=== PATIENT | male | born 1965 | race Two or more races ===

== ENCOUNTER 2017-12-14 07:38 | Inpatient (IN) | payer BC ==
[2017-12-14 08:22] LABS: Absolute Lymphocytes (CBC) 0.6 K/uL (0.7-4.9); Absolute Monocytes 0.8 K/uL (0.1-1.3); Absolute Neutrophil 6.6 K/uL (1.8-8.0); Basophils % 0.4 % (0-1.3); Eosinophils % 0.7 % (0-4.4); Hematocrit 25.5 % (39.6-49.0); Lymphocytes % 7.1 % (15.3-44.8); MCH 28.9 pg (27.0-35.0); MCV 87.4 fL (80-100); MPV 9.4 fL (7.6-11.3); Monocytes % 9.5 % (3.3-12.3); RBC Red Blood Cell Count 2.92 M/uL (4.33-5.43)
[2017-12-14 08:24] LABS: Protime INR 1.48
[2017-12-14 08:43] LABS: Albumin 3.5 g/dL (3.4-5.0); Bilirubin Direct 0.2 mg/dL (0-0.2); Bilirubin Total 0.6 mg/dL (0.2-1.0); Protein, Total 6.9 g/dL (6.4-8.2)
--- NOTE | 2017-12-14 09:00 | ER ---
Nurse's Notes [facility] Name: Francois Miranda Age: 52 yrs Sex: Male : 1965 Arrival Date: 12/14/2017 Time: 07:40 Bed 8 Private MD: Diagnosis: Acute Right-sided Pneumonia;Acute Dyspnea;CHF;renal insufficiency;anemia Presentation: 12/14 07:48 Presenting complaint: Patient states: SOB, productive cough, nausea, fever x 3 days. hb Denies pain. TMAX 100. Hx kidney transplant, anemia. Transition of care: patient was not received from another setting of care. Onset of symptoms was December 11, 2017. Risk Assessment: Do you want to hurt yourself or someone else? Patient reports no desire to harm self or others. 07:48 Method Of Arrival: Ambulatory hb 07:48 Acuity: PRISCILLA 2 hb 08:07 Initial Sepsis Screen: Does the patient meet any 2 criteria? RR > 20 per min. Yes Does sv the patient have a suspected source of infection? Yes: Productive cough/pneumonia. Care prior to arrival: None. Triage Assessment: 08:04 Respiratory: Onset: The symptoms/episode began/occurred 3 days ago. sv 08:45 Respiratory: the patient has severe shortness of breath. sv Historical: - Allergies: 07:51 No Known Allergies; hb - PMHx: 07:51 Anemia; hb - PSHx: 07:51 Kidney Transplant - RIGHT; HD fistule - LEFT; hb - Immunization history:: Adult Immunizations. - Social history:: Smoking status: Patient/guardian denies using tobacco. - Ebola Screening: : No symptoms or risks identified at this time. - Family history:: not pertinent. - Hospitalizations: : No recent hospitalization is reported. Screenin:57 Abuse screen: Denies threats or abuse. Denies injuries from another. Nutritional sv screening: No deficits noted. Tuberculosis screening: No symptoms or risk factors identified. Fall Risk None identified. Assessment: 08:45 General: Appears uncomfortable, obese, Behavior is calm, cooperative, appropriate for sv age. Pain: Denies pain. Neuro: Level of Consciousness is awake, alert, obeys commands, Oriented to person, place, time, situation, Moves all extremities. Full function. Cardiovascular: Heart tones S1 S2 present Patient's skin is warm and dry. Pulses are 3+ in right radial artery and left radial artery Rhythm is atrial fibrillation. Cardiovascular: Edema is 3+ to left ankle, left foot, left toes, right ankle, right foot and right toes Dialysis shunt: in the left arm, with palpable thrill. Respiratory: Reports shortness of breath at rest on exertion since 3 days cough that is productive, Airway is patent Respiratory effort is even, labored, Respiratory pattern is symmetrical, tachypnea Breath sounds are clear in left posterior upper lobe and right posterior upper lobe Breath sounds with crackles in left posterior lower lobe, right posterior middle lobe and right posterior lower lobe. GI: No signs and/or symptoms were reported involving the gastrointestinal system. : No signs and/or symptoms were reported regarding the genitourinary system. EENT: No signs and/or symptoms were reported regarding the EENT system. Derm: Skin is pink, warm \T\ dry. Musculoskeletal: No signs and/or symptoms reported regarding the musculoskeletal system. 09:34 Reassessment: Pt stated that he needed to have a BM and wanted to go to the restroom. sv Informed pt that I would not have a way to monitor him if something were to happen. Pt understood and is ok taking that risk. Pt wheeled to the bathroom with oxygen, at pt's side as well. 09:42 Reassessment: Patient appears in no apparent distress at this time. Patient and/or sv family updated on plan of care and expected duration. Pain level reassessed. Patient is alert, oriented x 3, equal unlabored respirations, skin warm/dry/pink. Patient states symptoms have improved. 12:20 Reassessment: Patient appears in no apparent distress at this time. Patient and/or sv family updated on plan of care and expected duration. Pain level reassessed. 12:28 Reassessment: Nurse to call back for report. sv 12:28 Reassessment: Dr Segal at bedside. sv Vital Signs: 07:45 BP 173 / 87; Pulse 83; Resp 40; Temp 99.1(O); Pulse Ox 85% on R/A; Pain 0/10; hb 07:46 Resp 38; Pulse Ox 88% on 2 lpm NC; sv 08:05 BP 169 / 69; Pulse 80; Resp 28; Pulse Ox 96% on 50% Venturi mask; sv 08:52 BP 173 / 88; Pulse 77; Resp 23; Pulse Ox 100% on 50% Venturi mask; sv 09:32 BP 166 / 91; Pulse 79; Resp 19; Pulse Ox 98% on 50% Venturi mask; sv 10:34 BP 170 / 91; Pulse 78; Resp 25; Pulse Ox 100% on 50% Venturi mask; sv 12:07 BP 162 / 98; Pulse 72; Resp 24; Pulse Ox 100% on 50% Venturi mask; sv 07:46 Pt then placed on Venturi mask at 50%. O2 sat up to 98%. sv ED Course: 07:40 Patient arrived in ED. sb2 07:44 Amanda Denis, JOSE ALFREDO is Primary Nurse. sv 07:45 Francois Verdugo MD is Attending Physician. wa 07:45 radiation monitor on. Pulse ox on. NIBP on. sv 07:49 Triage completed. hb 07:51 Arm band placed on left wrist. hb 07:55 Initial lab(s) drawn, by me, sent to lab. First set of blood cultures drawn by me. dh3 Inserted saline lock: 20 gauge in right antecubital area, using aseptic technique. Blood collected. 07:57 Patient has correct armband on for positive identification. Placed in gown. Bed in low sv position. Call light in reach. Side rails up X2. Adult w/ patient. 08:13 Second set of blood cultures drawn by me, by venipuncture 23G to right hand. dh3 08:28 X-ray completed. Portable x-ray completed in exam room. Patient tolerated procedure mh1 well. 08:30 Chest Single View XRAY In Process Unspecified. EDMS 08:58 Beba Reis MD is Hospitalizing Provider. wa 12:10 Urine Dipstick--Ancillary (enter results) Sent. sv 12:27 No provider procedures requiring assistance completed. Patient admitted, IV remains in sv place. intact. Administered Medications: 09:50 Drug: Nitroglycerin 0.4 mg Route: Sublingual; sv 10:00 Follow up: Response: No adverse reaction sv 09:51 Drug: Tylenol 1000 mg Route: PO; sv 10:00 Follow up: Response: No adverse reaction sv 09:52 Drug: Cefepime 2 grams Route: IVPB; Rate: 200 ml/hr; Infused Over: 30 mins; Site: right sv antecubital; 09:58 Follow up: Response: No adverse reaction; IV Status: Completed infusion; IV Intake: 20mlsv 09:58 Drug: vancoMYCIN 1 grams Route: IVPB; Infused Over: 2 hrs; Site: right antecubital; sv 12:00 Follow up: Response: No adverse reaction; IV Status: Completed infusion; IV Intake: sv 250ml 12:54 Drug: Lasix 80 mg Route: IVP; Site: right antecubital; hb 12:55 Follow up: Response: No adverse reaction sv Point of Care Testing: Blood Glucose: 07:57 Blood Glucose: 263 mg/dL; sv Ranges: Intake: 09:58 IV: 20ml; Total: 20ml. sv 12:00 IV: 250ml; Total: 270ml. sv Outcome: 08:59 Decision to Hospitalize by Provider. mo 12:55 Admitted to Tele accompanied by tech, family with patient, via stretcher, room 225, sv with oxygen, with chart, Report called to Antonio VELIZ 12:55 Condition: stable 12:55 Instructed on the need for admit. 13:35 Patient left the ED. sv Signatures: Dispatcher [employer] Amanda Chung RN RN Ketty Herrera 1 Alexandra Mauro RN RN Yeimi Mitchell 3 Francois Verdugo MD MD wa Billeau, Sheri sb2 Corrections: (The following items were deleted from the chart) 08:04 07:45 BP 173 / 87; Pulse 83bpm; Resp 28bpm; Pulse Ox 85% RA; Temp 99.1F Oral; Pain hb 0/10; hb 08:05 07:46 Pulse Ox 88% 2 lpm Nasal Cannula; Pt then placed on Venturi mask at 50%. O2 sat sv up to 98%.; sv 08:08 08:07 Initial Sepsis Screen: Does the patient meet any 2 criteria? RR > 20 per min. Yes sv Does the patient have a suspected source of infection? No. Patient's initial sepsis screen is negative. sv 09:38 08:05 BP 169 / 69; Pulse 80bpm; Resp 28bpm; Pulse Ox 96% 02 15% Venturi mask; sv sv 09:38 08:52 BP 173 / 88; Pulse 77bpm; Resp 23bpm; Pulse Ox 100% 02 15% Venturi mask; sv sv 09:38 09:32 BP 166 / 91; Pulse 79bpm; Resp 19bpm; Pulse Ox 99% 02 15% Venturi mask; dh3 sv
--- NOTE | 2017-12-14 09:00 | EDPHYS ---
Physician Documentation [facility] Name: Francois Miranda Age: 52 yrs Sex: Male : 1965 Arrival Date: 12/14/2017 Time: 07:40 Bed 8 Private MD: ED Physician Francois Verdugo HPI: 12/14 08:10 This 52 yrs old Male presents to ER via Ambulatory with complaints of Breathing wa Difficulty, Congestion. 08:10 The patient has shortness of breath at rest, c/o cough and SOB x 3 days. denies chest wa tightness or pain. admits to subjective fever and chills. h/o same in the past dx'd with pna. h/o kidney transplant x 14 yrs on tacrolimus. Denies abd pain. admits to worsening leg swelling. [facility] docs [facility]. also sees Dr. Kingston (cardiology) in this hosp. Onset: The symptoms/episode began/occurred 3 day(s) ago. Duration: The symptoms are continuous, and are steadily getting worse. The patient's shortness of breath is aggravated by nothing, is alleviated by nothing. Associated signs and symptoms: Pertinent positives: productive cough, fever, Pertinent negatives: chest pain, dizziness, vomiting. Severity of symptoms: At their worst the symptoms were moderate today, in the emergency department the symptoms are worse markedly. The patient has experienced a previous episode, many years ago, dx'd with pna. The patient has not recently seen a physician. Historical: - Allergies: 07:51 No Known Allergies; hb - PMHx: 07:51 Anemia; hb - PSHx: 07:51 Kidney Transplant - RIGHT; HD fistule - LEFT; hb - Immunization history:: Adult Immunizations. - Social history:: Smoking status: Patient/guardian denies using tobacco. - Ebola Screening: : No symptoms or risks identified at this time. - Family history:: not pertinent. - Hospitalizations: : No recent hospitalization is reported. ROS: 08:15 Eyes: Negative for injury, pain, redness, and discharge, ENT: Negative for injury, wa pain, and discharge, Neck: Negative for injury, pain, and swelling, Abdomen/GI: Negative for abdominal pain, nausea, vomiting, diarrhea, and constipation, Back: Negative for injury and pain, : Negative for injury, bleeding, discharge, and swelling, Skin: Negative for injury, rash, and discoloration, Neuro: Negative for headache, weakness, numbness, tingling, and seizure, Psych: Negative for depression, anxiety, suicide ideation, homicidal ideation, and hallucinations. 08:15 Constitutional: Positive for chills, fever, Negative for poor PO intake, weight loss. 08:15 Cardiovascular: Positive for edema, Negative for chest pain, palpitations. 08:15 MS/extremity: Positive for swelling, of the right leg and left leg, Negative for ecchymosis, erythema. 08:15 All other systems are negative. Exam: 08:17 Head/Face: Normocephalic, atraumatic. Eyes: Pupils equal round and reactive to light, wa extra-ocular motions intact. Lids and lashes normal. Conjunctiva and sclera are non-icteric and not injected. Cornea within normal limits. Periorbital areas with no swelling, redness, or edema. ENT: Nares patent. No nasal discharge, no septal abnormalities noted. Tympanic membranes are normal and external auditory canals are clear. Oropharynx with no redness, swelling, or masses, exudates, or evidence of obstruction, uvula midline. Mucous membranes moist. Neck: Trachea midline, no thyromegaly or masses palpated, and no cervical lymphadenopathy. Supple, full range of motion without nuchal rigidity, or vertebral point tenderness. No Meningismus. Chest/axilla: Normal chest wall appearance and motion. Nontender with no deformity. No lesions are appreciated. Abdomen/GI: Soft, non-tender, with normal bowel sounds. No distension or tympany. No guarding or rebound. No evidence of tenderness throughout. Back: No spinal tenderness. No costovertebral tenderness. Full range of motion. Skin: Warm, dry with normal turgor. Normal color with no rashes, no lesions, and no evidence of cellulitis. Neuro: Awake and alert, GCS 15, oriented to person, place, time, and situation. Cranial nerves II-XII grossly intact. Motor strength 5/5 in all extremities. Sensory grossly intact. Cerebellar exam normal. Normal gait. Psych: Awake, alert, with orientation to person, place and time. Behavior, mood, and affect are within normal limits. 08:17 Constitutional: The patient appears visibly dyspneic. not distressed however 08:17 Cardiovascular: Rate: normal, Rhythm: irregular, Heart sounds: normal, Edema: 2+ edema to level of pedal and ankle. 08:17 Respiratory: the patient does not display signs of respiratory distress, Respirations: tachypnea, elevated Breath sounds: noted bilateral lower lobe crackles. worse on the left, Respiratory rate: elevated Vital Signs: 07:45 BP 173 / 87; Pulse 83; Resp 40; Temp 99.1(O); Pulse Ox 85% on R/A; Pain 0/10; hb 07:46 Resp 38; Pulse Ox 88% on 2 lpm NC; sv 08:05 BP 169 / 69; Pulse 80; Resp 28; Pulse Ox 96% on 50% Venturi mask; sv 08:52 BP 173 / 88; Pulse 77; Resp 23; Pulse Ox 100% on 50% Venturi mask; sv 09:32 BP 166 / 91; Pulse 79; Resp 19; Pulse Ox 98% on 50% Venturi mask; sv 10:34 BP 170 / 91; Pulse 78; Resp 25; Pulse Ox 100% on 50% Venturi mask; sv 12:07 BP 162 / 98; Pulse 72; Resp 24; Pulse Ox 100% on 50% Venturi mask; sv 07:46 Pt then placed on Venturi mask at 50%. O2 sat up to 98%. sv MDM: 07:45 Patient medically screened. fl 08:21 Differential diagnosis: 52 yo M, immunocompromised secondary to kidney transplantation wa on suppressive meds. concern for pna. will r/o CHF. will aggressively work up r/o sepsis. will aggressively resuscitate. see stat orders. 08:51 Test interpretation: by ED physician or midlevel provider: EKG: HR 79. no obvious acute wa ischemic change. 08:54 Test interpretation: by ED physician or midlevel provider: CXR: noted R sided wa infiltrate consistent with pna. 08:57 Data reviewed: vital signs, nurses notes, radiologic studies. Response to treatment: fl the patient's symptoms have markedly improved after treatment. Physician consultation: Beba Reis MD. Admission orders: after a detailed discussion of the patient's condition and case, the admit orders are written by me. 09:10 Data reviewed: lab test result(s), radiologic studies. Test interpretation: by ED fl physician or midlevel provider: labs noted for hyperglycemia at 289. renal insufficiency with BUN/Cr of 85/4.3. anemia at 8.4 and 25.5. low CO2 at 16. low platelets at 120. elevated BNP 7642. 10:44 Special discussion: Based on the presenting symptoms and work-up in the emergency fl department, I discussed in detail the need to arrange with the PCP or specialist an outpatient procedure, upon further discussion with pt and spouse, pt gets all his care at [facility]. spoke with pt's renal doc Fredi. advised transfer to their system for continuity as well as renal support. will effect transfer as per request. 12/14 08:02 Order name: Urine Microscopic Only 12/14 08:02 Order name: Urine Culture fl 12/14 08:02 Order name: Basic Metabolic Panel; Complete Time: 09:08 fl 12/14 08:02 Order name: Blood Culture Adult (2) fl 12/14 08:02 Order name: CBC with Diff fl 12/14 08:02 Order name: Lactate; Complete Time: 08:35 fl 12/14 08:02 Order name: LFT's; Complete Time: 09:08 fl 12/14 08:02 Order name: Procalcitonin; Complete Time: 09:08 fl 12/14 08:02 Order name: Protime (+inr); Complete Time: 09:08 fl 12/14 08:02 Order name: Sed Rate fl 12/14 08:02 Order name: Troponin (emerg Dept Use Only); Complete Time: 09:08 fl 12/14 08:02 Order name: BNP; Complete Time: 09:08 fl 12/14 10:06 Order name: Urine Dipstick--Ancillary (enter results) bd 12/14 10:09 Order name: Urine Dipstick-Ancillary EDMS 12/14 08:02 Order name: Chest Single View XRAY; Complete Time: 09:09 fl 12/14 08:02 Order name: Accucheck; Complete Time: 08:17 fl 12/14 08:02 Order name: Cardiac monitoring; Complete Time: 08:17 fl 12/14 08:02 Order name: EKG - Nurse/Tech; Complete Time: 12:11 fl 12/14 08:02 Order name: IV Saline Lock - Large Bore; Complete Time: 08:17 fl 12/14 08:02 Order name: Labs collected and sent; Complete Time: 08:18 fl 12/14 08:02 Order name: O2 Per Protocol; Complete Time: 08:18 fl 12/14 08:02 Order name: O2 Sat Monitoring; Complete Time: 08:18 fl 12/14 08:19 Order name: EKG; Complete Time: 08:20 12/14 11:22 Order name: Glucose, Ancillary Testing [facility] 12/14 13:28 Order name: Glucose, Ancillary Testing [facility] 12/14 08:02 Order name: Urine Dipstick-Ancillary (obtain specimen); Complete Time: 12:11 fl Administered Medications: 09:50 Drug: Nitroglycerin 0.4 mg Route: Sublingual; sv 10:00 Follow up: Response: No adverse reaction sv 09:51 Drug: Tylenol 1000 mg Route: PO; sv 10:00 Follow up: Response: No adverse reaction sv 09:52 Drug: Cefepime 2 grams Route: IVPB; Rate: 200 ml/hr; Infused Over: 30 mins; Site: right sv antecubital; 09:58 Follow up: Response: No adverse reaction; IV Status: Completed infusion; IV Intake: 20mlsv 09:58 Drug: vancoMYCIN 1 grams Route: IVPB; Infused Over: 2 hrs; Site: right antecubital; sv 12:00 Follow up: Response: No adverse reaction; IV Status: Completed infusion; IV Intake: sv 250ml 12:54 Drug: Lasix 80 mg Route: IVP; Site: right antecubital; hb 12:55 Follow up: Response: No adverse reaction sv Point of Care Testing: Blood Glucose: 07:57 Blood Glucose: 263 mg/dL; sv Ranges: Critical Glucose Levels:Adult <50 mg/dl or >400 mg/dl <40 mg/dl or >180 mg/dl Disposition: :13 Critical Care:. fl Disposition: 12/14/17 08:59 Hospitalization ordered by Beba Reis for Inpatient Admission. Preliminary diagnosis are Acute Right-sided Pneumonia, Acute Dyspnea, CHF, renal insufficiency, anemia. - Bed requested for Telemetry/MedSurg (Inpatient). - Status is Inpatient Admission. sv - Condition is Stable. - Problem is new. - Symptoms have improved. UTI on Admission? No Critical care time excluding procedures: :13 Critical care time: Bedside Care: 15 minutes, Consultation: 5 minutes, Family wa Intervention: 10 minutes. Total time: 30 minutes Signatures: Dispatcher [employer] EDNC Amanda Denis RN RN Elza Martins RN RN Alexandra Mauro, JOSE ALFREDO VELIZ Francois Verdugo MD MD fl Corrections: (The following items were deleted from the chart) 09:12 08:59 Hospitalization Ordered by Beba Reis MD for Inpatient Admission. Preliminary fl diagnosis is Acute Right-sided Pneumonia; Acute Dyspnea. Bed requested for Telemetry/MedSurg (Inpatient). Status is Inpatient Admission. Condition is Stable. Problem is new. Symptoms have improved. UTI on Admission? No. fl 12:16 09:12 12/14/2017 08:59 Hospitalization Ordered by Beba Reis MD for Inpatient dw Admission. Preliminary diagnosis is Acute Right-sided Pneumonia; Acute Dyspnea; CHF; renal insufficiency; anemia. Bed requested for Telemetry/MedSurg (Inpatient). Status is Inpatient Admission. Condition is Stable. Problem is new. Symptoms have improved. UTI on Admission? No. fl 13:35 12:16 12/14/2017 08:59 Hospitalization Ordered by Beba Reis MD for Inpatient sv Admission. Preliminary diagnosis is Acute Right-sided Pneumonia; Acute Dyspnea; CHF; renal insufficiency; anemia. Bed requested for Telemetry/MedSurg (Inpatient). Status is Inpatient Admission. Condition is Stable. Problem is new. Symptoms have improved. UTI on Admission? No.
--- NOTE | 2017-12-14 09:05 | RAD REPORT ---
EXAM DESCRIPTION: RAD - Chest Single View - 12/14/2017 8:30 am CLINICAL HISTORY: Cough, shortness of breath, fever COMPARISON: May 2009 TECHNIQUE: AP portable chest image was obtained 0817 hours . FINDINGS: Portable underpenetrated technique and large body habitus limit the examination. Alveolar opacification is present in the lower right lung field. Upper lobe vasculature is accentuate d by body habitus and shallow inspiration. Left base assessment is limited. Heart size is upper benito l. No measurable pleural effusion and no pneumothorax. No gross bony abnormality seen. No acute aorti c findings suspected. IMPRESSION: Right lung base pneumonia.
[2017-12-14] MEDS ORDERED: VANCOMYCIN/NS 1 gm 1 GM/250 ML BAG IV ONE (09:15)
[2017-12-14] MEDS ORDERED: CEFEPIME/SWI 2gm 2 GM/20 ML SYR IV ONE (09:15)
[2017-12-14] MEDS ORDERED: ACETAMINOPHEN 500 MG TAB ONE (09:30)
[2017-12-14] MEDS ORDERED: NITROGLYCERIN 0.4 MG/TAB SL ONE (09:30)
--- NOTE | 2017-12-14 09:35 | EKG ---
Test Date: 2017-12-14 Test Time: 08:30:39 Sql Database Administrator: APRYL MEASUREMENT RESULTS: Intervals: Rate: 79 [place]: 190 QRSD: 100 QT: 372 QTc: 426 [place]: P: 29 AZ: 190 QRS: -17 T: 21 INTERPRETIVE STATEMENTS: Normal sinus rhythm Normal ECG Compared to ECG 06/20/2009 06:39:07 No significant changes Electronically Signed On 12-14-17 09:34:40 CDT by Aaron Kingston
[2017-12-14] MEDS ORDERED: ONDANSETRON 4 MG/2 ML VIAL IV PRN (09:57)
[2017-12-14] MEDS ORDERED: ACETAMINOPHEN 500 MG TAB PO PRN (09:57)
[2017-12-14 10:09] LABS: Urine Blood 2+ (NEG); Urine Glucose TRACE (NEG); Urine Protein 3+ (NEG)
[2017-12-14 10:18] LABS: Urine Bacteria 20-50 /HPF (NONE SEEN)
[2017-12-14 10:19] LABS: Urine Amorphous Sediment 2+ /HPF (NONE SEEN); Urine Culture Reflex Order NOT NEEDED; Urine Mucus 3+ /HPF (NONE SEEN)
[2017-12-14 10:20] LABS: Urine Coarse Granular Casts 0-5 /LPF (NONE SEEN)
[2017-12-14] MEDS: INSULIN -REGULAR HUMAN 50 UNIT/0.5 ML ML SQ SCH ×3 (11:30→22:09)
--- NOTE | 2017-12-14 12:07 | P.HP ---
Certification for Inpatient Patient admitted to: Inpatient With expected LOS: >2 Midnights Patient will require the following post-hospital care: None Practitioner: I am a practitioner with admitting privileges, knowledge of patient current condition, hospital course, and medical plan of care. Services: Services provided to patient in accordance with Admission requirements found in Title 42 Section 412.3 of the Code of Federal Regulations Patient History Date of Service: 12/17/17 Primary Care Provider: OOT Reason for admission: DOUGLAS History of Present Illness: This is a 52-year-old male with significant past medical history of hypertension , atrial fibrillation, morbid obesity, kidney transplant 14 years ago, was on hemodialysis before, presenting to the ED complaining of having some shortness of breath, cough, fever of T-max of 100 which started about 2-3 days ago. Patient stated that he got real short of breath and thus decided to come to the ER for further workup. Patient kidney transplant team is at [facility]. 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 And has been followed by Dr. Kingston for his chronic atrial fibrillation. In the ER patient was found to have right lower lobe pneumonia along with acute kidney injury and thus was referred over for admission for further care. Initially patient was asked to be transferred to [facility] where his transplant team is given the nature of his acute kidney injury and the possibility of rejection. However patient was not transferred to [facility] due to no available beds at [facility]. Allergies No Known Allergies Allergy (Verified 12/14/17 14:12) Home Medications: Allopurinol 1 tab PO BID 12/14/17 Amlodipine Besylate 10 mg PO BID 12/14/17 Amlodipine [Norvasc] 10 mg PO DAILY 12/14/17 Apixaban [Eliquis] 2.5 mg PO BID 12/14/17 Epoetin [Procrit*] 1 vial SQ DIRECTED 12/14/17 Labetalol HCl [Trandate] 400 mg PO BID 12/14/17 Mycophenolate Mofetil [Cellcept] 1,000 mg PO BID 12/14/17 Rosuvastatin Calcium 10 mg PO BEDTIME 12/14/17 Tacrolimus [Prograf] 4 mg PO BID 12/14/17 cloNIDine HCl [Clonidine HCl] 1 tab PO BID 12/14/17 predniSONE [Prednisone*] 7.5 mg PO DAILY 12/14/17 - Family History Mother -: Other (see notes) Notes: NO MEDICAL HISTORY Father -: Stroke, Other (see notes) Notes: PROSTRATE CANCER Review of Systems General: As per HPI Physical Examination - Physical Exam General: Alert, Acute distress, Obese HEENT: Atraumatic Neck: Supple, 2+ carotid pulse no bruit, No LAD, Without JVD or thyroid abnormality Respiratory: Normal air movement, Crackles/rales Cardiovascular: Regular rate/rhythm, Normal S1 S2 Gastrointestinal: Normal bowel sounds, No tenderness Musculoskeletal: No tenderness Integumentary: No rashes Neurological: Normal gait, Normal speech, Normal strength at 5/5 x4 extr, Normal tone, Normal affect Lymphatics: No axilla or inguinal lymphadenopathy - Studies Laboratory Data (last 24 hrs) 12/14/17 07:55: PT 17.5 H, INR 1.48 12/14/17 07:55: WBC 8.0, Hgb 8.4 L, Hct 25.5 L, Plt Count 120 L 12/14/17 07:55: Sodium 135 L, Potassium 5.0, BUN 85 H, Creatinine 4.30 H, Glucose 289 H, Total Bilirubin 0.6, AST 7 L, ALT 8 L, Alkaline Phosphatase 84 Assessment and Plan - Problems (Diagnosis) (1) PNA (pneumonia) Onset Date: 12/15/17 Current Visit: Yes Status: Acute Plan: Right liver lobe pneumonia noted on the chest CT and chest x-ray. CT and chest x-ray at the likely represent volume overload as well as however patient will be started on IV antibiotics at this time and will collect sputum culture. Will continue with the lab monitoring and repeat x-ray in the morning. Qualifiers: Pneumonia type: due to unspecified organism Laterality: right Lung location: lower lobe of lung Qualified Code(s): J18.1 - Lobar pneumonia, unspecified organism (2) UTI (urinary tract infection) Onset Date: 12/15/17 Current Visit: Yes Status: Acute Plan: UAs positive for leuk esterase urine culture is pending at this time. Patient will be started on IV antibiotics for pneumonia was get IV Rocephin which will cover for both the pneumonia and UTI at this time. Will follow up with urine culture. Qualifiers: Urinary tract infection type: acute cystitis Hematuria presence: without hematuria Qualified Code(s): N30.00 - Acute cystitis without hematuria (3) Volume overload Onset Date: 12/15/17 Current Visit: Yes Status: Acute Plan: Volume overload with bilateral lower leg extremity edema most likely secondary to renal insufficiency. Patient will be started on IV Lasix here in the hospital. Will get nephrology consulted here in the hospital. Will communicate with the transplant team along with nephrology at [facility] for the patient. Patient might require hemodialysis echo be started here in the hospital however will wait for further recommendations from nephrology at this time. Qualifiers: Hypervolemia type: other Qualified Code(s): E87.79 - Other fluid overload (4) DOUGLAS (acute kidney injury) Onset Date: 12/15/17 Current Visit: Yes Status: Acute Plan: Acute kidney injury most likely secondary to UTI verses acute worsening of the chronic kidney disease. Nephrology consulted at this time. Patient does have a history of hemodialysis which she had in the past however was stopped due to proven in his kidney function. Will await nephrology recommendations at this time in terms of starting hemodialysis versus cavitary attic for volume overload. Patient will also need to be on steroids due to possibility of acute rejection of the transplanted kidney. Will start that here in the hospital at this time. (5) Kidney transplant recipient Onset Date: 12/15/17 Current Visit: Yes Status: Chronic Discharge Plan: Home Plan to discharge in: 48 Hours - Advance Directives Does patient have a Living Will: No Does patient have a Durable POA for Healthcare: No - Code Status/Comfort Care Code Status Assessed: Yes Critical Care: No
[2017-12-14] MEDS ORDERED: FUROSEMIDE 100 MG/10 ML VIAL IV ONE (12:54)
[2017-12-14] MEDS ORDERED: CIPROFLOXACIN 400mg IV 400 MG/200 ML BAG IV SCH (13:00)
--- NOTE | 2017-12-14 14:26 | ECHO ---
HEIGHT: 6 ft 0 in WEIGHT: 360 lb 0 oz DATE OF STUDY: 12/14/[address]: Beba Reis MD 2-DIMENSIONAL: YES M.MODE: YES DOPPLER: YES COLOR FLOW: YES TDS: NO PORTABLE: NO DEFINITY: NO BUBBLE STUDY: NO DIAGNOSIS: SHORTNESS OF BREATH CARDIAC HISTORY: CATHERIZATION: NO SURGERY: NO PROSTHETIC VALVE: NO PACEMAKER: NO MEASUREMENTS (cm) DIASTOLIC (NORMALS) SYSTOLIC (NORMALS) IVSd 1.2 (0.6-1.2) LA Diam 5.1 (1.9-4.0) LVEF 61% LVIDd 7.2 (3.5-5.7) LVIDs 4.7 (2.0-3.5) %FS 34% LVPWd 1.3 (0.6-1.2) Ao Diam 2.7 (2.0-3.7) 2 DIMENSIONAL ASSESSMENT: RIGHT ATRIUM: DILATED LEFT ATRIUM: DILATED RIGHT VENTRICLE: NORMAL LEFT VENTRICLE: LEFT VENTRICULAR HYPERTROHY, DILATED TRICUSPID VALVE: NORMAL MITRAL VALVE: NORMAL PULMONIC VALVE: NORMAL AORTIC VALVE: NORMAL PERICARDIAL EFFUSION: NONE AORTIC ROOT: NORMAL LEFT VENTRICULAR WALL MOTION: NORMAL. DOPPLER/COLOR FLOW: MILD TRICUSPID REGURGITATION. TRACE OF TRICUSPID REGURGITATION. SEVERE PULMONARY HYPERTENSION. ESTIMATED RIGHT VENTRICULAR SYSTOLIC PRESSURE >60mmHg. COMMENTS: NORMAL LEFT VENTRICULAR EJECTION FRACTION. DILATED LEFT ATRIUM, RIGHT ATRIUM, LEFT VENTRICLE. LEFT VENTRICULAR HYPERTROPHY. MILD MITRAL REGURGITATION. TRACE OF TRICUSPID REGURGITATION. SEVERE PULMONARY HYPERTENSION. TECHNOLOGIST: BEBA SAHNI
[2017-12-14 14:34] VITALS: BMI 48.8
[2017-12-14] MEDS ORDERED: PNEUMOCOCCAL VACCINE 0.5 ML IMVAC ONE (19:00)
[2017-12-14] MEDS ORDERED: EPOETIN ALFA 20,000 UNIT/1 ML VIAL SQ SCH (21:15)
[2017-12-14 21:51] LABS: Arterial Blood Carboxyhemoglob 1.8 % (0-1.5); Blood Gas Oxyhemoglobin 95.8 % (94-97); Blood O2 Saturation 98.3 % (92-98.5)
--- NOTE | 2017-12-14 22:26 | RAD REPORT ---
EXAM DESCRIPTION: US - Renal Ultrasound-Complete - 12/14/2017 10:04 pm CLINICAL HISTORY: . Acute renal insufficiency COMPARISON: 2014 FINDINGS: A transplant kidney is present within the right pelvis. The kidney 14.6 centimeters. The e chotexture appears normal. Mild hydronephrosis is unchanged from 2014. . IMPRESSION: Mild hydronephrosis of the transplant kidney without change from 2014.
--- NOTE | 2017-12-14 23:36 | CON ---
Date of Consultation: 12/14/2017 Consulting Physician: Dr. Reis. Reason For Consultation: Elevated BUN and creatinine, fluid over volume, renal transplant. History Of Present Illness: This is a pleasant, unfortunate, 52-year-old gentleman with significant past medical history of hypertension; hyperlipidemia; end-stage renal disease, status post dialysis f or 6 years when cadaveric kidney transplant 14 years back slowly progressed, no rejection according t o him in the last 1 year. His kidney function continue to deteriorate to the point that they propose d to him that he may need to reinitiate dialysis. The patient's last creatinine according to him, it was 3.5 with his set up technician. The patient was maintained on CellCept 1 g b.i.d. and Prograf 4 mg b .i.d. The patient came to the hospital complaining of shortness of breath and increase in swelling, found to have elevated BUN and creatinine, over volume. For that reason, we have been consulted. Th e patient denied taking any nonsteroidal. No IV contrast. No recent change in his medication. Past Medical History: Includes: 1.Hypertension. 2.End-stage renal disease, status post dialysis for 6 years, then current transplant 14 years back, cadaveric kidney transplant. No acute rejection, slow progression to end stage again. 3.Hyperlipidemia. 4.Obesity. Allergies: NO KNOWN DRUG ALLERGIES. Social History: Denies smoking, denies drinking, denies drug abuse. Family History: Positive for hypertension. Past Surgical History: Include kidney transplant. Review of Systems: Head and Neck: No red eye. No ear pain. GI: Decreased intake. : No polyuria. No dysuria. No hematuria. ELECTRONIC PUBLISHING SPECIALIST: Not applicable. Respiratory: Has shortness of breath. Has cough. Cardiovascular: No chest pain. Has leg swelling. Endocrine: No polydipsia. Skin: No rash. Neuro: Generalized weakness. Musculoskeletal: No joint pain. Physical Examination: Vital Signs: When I saw the patient, blood pressure 168/86, pulse of 72, afebrile. Chest: Crackles bilateral. Heart: S1, S2. Systolic murmur. Abdomen: Soft, nontender. Extremities: +2 edema. Neurologic: Alert and oriented, no tremor. Home Medications: Include amlodipine 10 mg, CellCept 1000 mg b.i.d., labetalol 400 b.i.d., Prograf 4 mg b.i.d., allopurinol 100 b.i.d., Eliquis 2.5 b.i.d., Epogen, prednisone 7.5 daily, clonidine 1 tab let b.i.d., atorvastatin. Laboratory Data: WBC 8, H and H 8.4/25.5, platelet 120. Sodium 135, potassium 5, bicarb 16, chlorid e 108, BUN 85, creatinine 4.3, GFR of 14, glucose 285. LFT within normal limits. BNP 7642, procalci tonin 0.5. Urinalysis: Specific gravity of 1.020, WBC of 10, bacteria of 50, +3 of protein. INR 1.4 . Echocardiogram: Ejection fraction of 60%. Dilated left ventricle with hypertrophy. Severe pulmo nary hypertension. Chest x-ray: Cardiomegaly with pneumonia. Assessment And Plan: 1.Acute kidney injury on advanced chronic kidney disease with kidney transplant. a.It looked to me the patient is still on the over volume side. I going to give the patient Lasix 8 [address] the patient on Lasix 80 b.i.d. to establish better volume control. b.We will send for full workup. c.Given the history of the transplant and the patient is steroid dependent, I am going to up his pre dnisone to stress dose, 50 mg of hydrocortisone t.i.d. d.I am going to hold on the CellCept and decrease the Prograf for the time being given the active pn eumonia. e.We will continue to monitor the patient. f.I had long discussion with the patient that if kidney function continues to deteriorate, may need to initiate dialysis to establish better volume control. The patient verbalized understanding and ag olesya if that is needed to do it. 2.Hyperkalemia, marginal. We will hold ANTONIO inhibitor secondary to renal failure. We will diurese. 3.Acidosis. Non-anion gap metabolic acidosis. I am going to send for ABG, send for ketone. I do n ot see any need for replacement. Given the hyperglycemia, DKA needs to be ruled out. We will follow up. 4.Anemia of chronic kidney disease, we will send for the workup. Resume Epogen. 5.Pneumonia in immunocompromised patient. We will start the patient on vancomycin and Zosyenrico and we will monitor the patient. 6.New-onset diabetes. We will place the patient on sliding scale and we will follow up. Case discussed with the patient, verbalized understanding. Discussed with neli Mac. Time Spent: 75 minutes. MISSY Voice ID: [id number] Report ID: [id number]
[2017-12-15] MEDS ORDERED: PIPERACIL/TAZO 2.25 GM VIAL IV ONE (00:34)
[2017-12-15] MEDS ORDERED: NA CHLORIDE 0.9% 100 ML ONE (00:36)
[2017-12-15] MEDS: PIPER/TAZO/NS 2.25gm 2.25 GM/50 ML BAG IVPB SCH ×3 (00:43→18:08)
[2017-12-15 05:16] LABS: Absolute Lymphocytes (CBC) 0.3 K/uL (0.7-4.9); Absolute Monocytes 0.3 K/uL (0.1-1.3); Absolute Neutrophil 5.2 K/uL (1.8-8.0); Basophils % 0.2 % (0-1.3); Eosinophils % 0.2 % (0-4.4); Hematocrit 21.9 % (39.6-49.0); Lymphocytes % 5.8 % (15.3-44.8); MCH 29.3 pg (27.0-35.0); MCV 86.5 fL (80-100); Monocytes % 5.7 % (3.3-12.3); RBC Red Blood Cell Count 2.53 M/uL (4.33-5.43)
[2017-12-15 05:51] LABS: Urine Protein/Creatinine Ratio 2.78 ratio (<0.15)
[2017-12-15 06:03] LABS: Bilirubin Total 0.5 mg/dL (0.2-1.0); Ferritin 608.4 ng/mL (26-388); Folic Acid, (Folate) 7.9 ng/mL (3.1-17.5); Magnesium 2.2 mg/dL (1.8-2.4); Phosphorus 4.4 mg/dL (2.5-4.9); Protein, Total 6.6 g/dL (6.4-8.2); Thyroid Stimulating Hormone 1.24 uIU/mL (0.36-3.74)
[2017-12-15 06:04] LABS: Potassium 5.9 mmol/L (3.5-5.1)
[2017-12-15] MEDS ORDERED: SOD POLYSTYREN SUL 15 GM/60 ML UCUP PO ONE (08:43)
[2017-12-15 08:46] LABS: Anisocytosis SLIGHT; Blood Morphology Comment NOTED (NOT SEEN); Macrocytosis SLIGHT; Ovalocytes SLIGHT; Platelet Estimate DECR
[2017-12-15] MEDS ORDERED: prednisoLONE 15 MG/5 ML OSYR PO SCH (09:00)
[2017-12-15] MEDS ORDERED: TACROLIMUS 4 MG PO SCH (09:00)
[2017-12-15] MEDS: LABETALOL HCL 100 MG TAB PO SCH ×2 (09:00→22:32)
[2017-12-15] MEDS: AMLODIPINE 10 MG TAB PO SCH (09:00)
[2017-12-15] MEDS ORDERED: MYCOPHENOLATE MOFETIL 1000 MG PO SCH (09:00)
[2017-12-15] MEDS: predniSONE 10 MG TAB PO SCH (09:00)
[2017-12-15] MEDS ORDERED: APIXABAN 5 MG TABLET PO SCH (09:00)
[2017-12-15] MEDS ORDERED: ALBUTEROL 2.5 MG/3 ML NEB SOL NEB ONE (10:10)
[2017-12-15] MEDS: INSULIN -REGULAR HUMAN 50 UNIT/0.5 ML ML SQ SCH ×4 (10:19→22:30)
[2017-12-15] MEDS: FUROSEMIDE 40 MG/4 ML VIAL IV SCH ×2 (10:26→18:09)
[2017-12-15] MEDS: SODIUM BICARB 325 MG TAB PO SCH ×2 (10:28→22:31)
--- NOTE | 2017-12-15 11:07 | P.PN ---
Addendum entered and electronically signed by Miguel Mendes PA 12/15/17 11:08 : It was also noted that patient's hemoglobin had dropped since yesterday. Patient currently on Procrit but a stool guaiac will be obtained to ensure that he is not bleeding internally since patient is on Eliquis. Original Note: Subjective Date of Service: 12/15/17 Chief Complaint: shortness of breath Labs in case was reviewed this morning. Upon assessment this morning patient in no acute distress. Patient still feels short of breath at rest and with exertion. No other new developments from his standpoint. The patient's potassium was noted to be at 5.9 this morning. The BUN and creatinine both elevated but not substantially different from the day before. Tubing Drier has been consulted and has seen the patient. Patient is aware that if renal function continues to worsen that patient will have to be put back on dialysis. <Miguel Mendes - Last Filed: 12/15/17 11:00> Date of Service: 12/15/17 <Pat Delgado - Last Filed: 12/15/17 14:49> Review of Systems 10-point ROS is otherwise unremarkable Respiratory: Shortness of Breath, SOB with Excertion <Miguel Mendes - Last Filed: 12/15/17 11:00> Physical Examination - Vital Signs Temperature: 99.1 F Blood Pressure: 167/77 Pulse: 77 Respirations: 20 Pulse Ox (%): 93 - Physical Exam General: Alert, In no apparent distress, Oriented x3, Cooperative HEENT: PERRLA, Mucous membr. moist/pink, EOMI Neck: Supple, 2+ carotid pulse no bruit Respiratory: Clear to auscultation bilaterally, Normal air movement Cardiovascular: No edema, Regular rate/rhythm, Normal S1 S2 Capillary refill: <2 Seconds Gastrointestinal: Normal bowel sounds, Soft and benign, No tenderness Musculoskeletal: No clubbing, No swelling, No contractures, No erythema, No tenderness, No warmth Integumentary: No rashes, No breakdown, No significant lesion Neurological: Normal speech, Normal strength at 5/5 x4 extr, Normal tone, Sensation intact, Cranial nerves 3-12 intact, Normal affect - Studies Microbiology Data (last 24 hrs): 12/14/17 08:13 Blood - Blood Anaerobic Blood Culture - Final <Miguel Mendes - Last Filed: 12/15/17 11:00> - Studies Laboratory Last Values WBC 5.9 K/uL (4.3-10.9) D 12/15/17 04:52 RBC 2.53 M/uL (4.33-5.43) L 12/15/17 04:52 Hgb 7.4 g/dL (13.6-17.9) L* 12/15/17 04:52 Hct 21.9 % (39.6-49.0) L 12/15/17 04:52 MCV 86.5 fL (80-100) 12/15/17 04:52 MCH 29.3 pg (27.0-35.0) 12/15/17 04:52 MCHC 33.9 g/dL (32.0-36.0) 12/15/17 04:52 RDW 13.8 % (12.1-15.2) 12/15/17 04:52 Plt Count 96 K/uL (152-406) L 12/15/17 04:52 MPV 9.0 fL (7.6-11.3) 12/15/17 04:52 Neutrophils % 88.1 % (41.7-73.7) H 12/15/17 04:52 Lymphocytes % 5.8 % (15.3-44.8) L 12/15/17 04:52 Monocytes % 5.7 % (3.3-12.3) 12/15/17 04:52 Eosinophils % 0.2 % (0-4.4) 12/15/17 04:52 Basophils % 0.2 % (0-1.3) 12/15/17 04:52 Absolute Neutrophils 5.2 K/uL (1.8-8.0) 12/15/17 04:52 Segmented Neutrophils 90 % (40-80) H 12/15/17 04:52 Absolute Lymphocytes 0.3 K/uL (0.7-4.9) L 12/15/17 04:52 Lymphocytes 3 % (15-42) L 12/15/17 04:52 Monocytes 7 % (0-10) 12/15/17 04:52 Absolute Monocytes 0.3 K/uL (0.1-1.3) 12/15/17 04:52 Absolute Eosinophils 0.0 K/uL (0-0.5) 12/15/17 04:52 Absolute Basophils 0.0 K/uL (0-0.5) 12/15/17 04:52 Anisocytosis Slight 12/15/17 04:52 Macrocytosis Slight 12/15/17 04:52 Ovalocytes Slight 12/15/17 04:52 Morphology Comment Noted (NOT SEEN) 12/15/17 04:52 ESR Westergren > 140 mm/HR (0-20) H 12/14/17 07:55 Absolute Retic 0.08 M/uL (0.02-0.11) 12/15/17 04:52 Percent Retic 3.13 % (0.4-2.05) H 12/15/17 04:52 PT 17.5 SECONDS (9.5-12.5) H 12/14/17 07:55 INR 1.48 12/14/17 07:55 pH 7.30 (7.35-7.45) L 12/14/17 21:45 pCO2 30.8 mmHG (35-45) L 12/14/17 21:45 pO2 104.0 mmHG (75-100) H 12/14/17 21:45 HCO3 14.8 mmol/L (22-28) L 12/14/17 21:45 Base Excess -10.3 mmol/L 12/14/17 21:45 Oxyhemoglobin 95.8 % (94-97) 12/14/17 21:45 ABG O2 Sat (Measured) 98.3 % (92-98.5) 12/14/17 21:45 ABG Carboxyhemoglobin 1.8 % (0-1.5) H 12/14/17 21:45 ABG Methemoglobin 0.7 % (0-1.5) 12/14/17 21:45 Other Total Hgb 7.8 g/dl (12-18) L 12/14/17 21:45 Inspired O2 50.0 % 12/14/17 21:45 Sodium 136 mmol/L (136-145) 12/15/17 04:52 Potassium 5.9 mmol/L (3.5-5.1) H* 12/15/17 04:52 Chloride 110 mmol/L (98-107) H 12/15/17 04:52 Carbon Dioxide 17 mmol/L (21-32) L 12/15/17 04:52 BUN 91 mg/dL (7-18) H 12/15/17 04:52 Creatinine 4.50 mg/dL (0.55-1.3) H 12/15/17 04:52 Estimated GFR 14 mL/min (=/>90) L 12/15/17 04:52 Glucose 282 mg/dL (74-106) H 12/15/17 04:52 POC Glucose 297 mg/dl (65-120) H 12/15/17 11:54 Lactic Acid 1.8 mmol/L (0.4-2.0) 12/14/17 07:55 Calcium 9.8 mg/dL (8.5-10.1) 12/15/17 04:52 Phosphorus 4.4 mg/dL (2.5-4.9) 12/15/17 04:52 Magnesium 2.2 mg/dL (1.8-2.4) 12/15/17 04:52 Iron 21.0 ug/dL (65-175) L 12/15/17 04:52 TIBC 207 ug/dL (250-460) L 12/15/17 04:52 Transferrin 148 mg/dL (200-360) L 12/15/17 04:52 Transferrin % Sat 10.1 % (20.0-50.0) L 12/15/17 04:52 Ferritin 608.4 ng/mL (26-388) H 12/15/17 04:52 Total Bilirubin 0.5 mg/dL (0.2-1.0) 12/15/17 04:52 Direct Bilirubin 0.2 mg/dL (0-0.2) 12/14/17 07:55 AST 12 U/L (15-37) L 12/15/17 04:52 ALT 9 U/L (12-78) L 12/15/17 04:52 Alkaline Phosphatase 80 U/L (45-117) 12/15/17 04:52 Rapid Troponin I 0.03 ng/mL (0.0-0.045) 12/14/17 07:55 NT-Pro-B Natriuret Pep 7642 pg/mL (<125) H 12/14/17 07:55 Serum Total Protein 6.6 g/dL (6.4-8.2) 12/15/17 04:52 Albumin 3.0 g/dL (3.4-5.0) L 12/15/17 04:52 Globulin 3.6 g/dL (2.3-3.5) H 12/15/17 04:52 Albumin/Globulin Ratio 0.8 (1.1-1.8) L 12/15/17 04:52 Vitamin B12 439 pg/mL (193-986) 12/15/17 04:52 Serum Folate 7.9 ng/mL (3.1-17.5) 12/15/17 04:52 Procalcitonin 0.50 ng/mL (<0.50) 12/14/17 07:55 TSH 1.240 uIU/mL (0.36-3.74) 12/15/17 04:52 PTH Intact 487 pg/mL (12-88) H 12/15/17 04:52 Urine pH 5.0 (5.0-7.0) 12/14/17 10:06 Ur Specific Marshallberg 1.020 (1.005-1.030) 12/14/17 10:06 Urine Ketones Negative (NEG) 12/14/17 10:06 Urine Blood 2+ (NEG) H 12/14/17 10:06 Urine Nitrite Negative (NEG) 12/14/17 10:06 Ur Leukocyte Esterase Negative (NEG) 12/14/17 10:06 Urine RBC 5-10 /HPF (NONE SEEN) H 12/14/17 09:55 Urine WBC 5-10 /HPF (<5) H 12/14/17 09:55 Ur Squamous Epith Cells 5-10 /HPF (NONE SEEN) H 12/14/17 09:55 Amorphous Sediment 2+ /HPF (NONE SEEN) H 12/14/17 09:55 Urine Bacteria 20-50 /HPF (NONE SEEN) H 12/14/17 09:55 Hyaline Casts 0-5 /LPF (NONE SEEN) 12/14/17 09:55 Coarse Granular Casts 0-5 /LPF (NONE SEEN) 12/14/17 09:55 Urine Mucus 3+ /HPF (NONE SEEN) H 12/14/17 09:55 Urine Culture Reflexed Not needed 12/14/17 09:55 U Random Total Protein 236 mg/dL (<11.9) H 12/15/17 05:31 Urine Creatinine 85.0 mg/dL (20-370) 12/15/17 05:31 Protein/Creatinin Ratio 2.78 ratio (<0.15) H 12/15/17 05:31 Urine Glucose Trace (NEG) 12/14/17 10:06 Urine Total Protein 3+ (NEG) H 12/14/17 10:06 Acetone Level Neg (NEG) 12/14/17 22:05 ABO/Rh Cancelled 12/15/17 Unknown Antibody Screen Cancelled 12/15/17 Unknown Crossmatch See Detail 12/15/17 06:40 BBK History Checked Cancelled 12/15/17 Unknown Microbiology Data (last 24 hrs): 12/14/17 08:13 Blood - Blood Anaerobic Blood Culture - Final <Pat Delgado - Last Filed: 12/15/17 14:49> Assessment And Plan - Current Problems (Diagnosis) (1) DOUGLAS (acute kidney injury) Onset Date: 12/15/17 Current Visit: Yes Status: Acute (2) PNA (pneumonia) Onset Date: 12/15/17 Current Visit: Yes Status: Acute Qualifiers: Pneumonia type: due to unspecified organism Laterality: right Lung location: lower lobe of lung Qualified Code(s): J18.1 - Lobar pneumonia, unspecified organism (3) Kidney transplant recipient Onset Date: 12/15/17 Current Visit: Yes Status: Chronic - Plan Antibiotics will be continued for pneumonia. Patient is to have oxygen via nasal cannula at all times. Respiratory status will be continually monitored. For the elevated potassium, medications have been ordered and administered. The patient is to have a basal metabolic panel redrawn and 4 hr post medication administration to ensure that potassium is coming down. Renal function will be monitored and labs will be drawn in the morning to ensure stabilization renal function if not nephrology will be called. Discharge Plan: Home Plan to discharge in: 72 Hours <Miguel Mendes - Last Filed: 12/15/17 11:00> - Current Problems (Diagnosis) (1) DOUGLAS (acute kidney injury) Onset Date: 12/15/17 Current Visit: Yes Status: Acute (2) PNA (pneumonia) Onset Date: 12/15/17 Current Visit: Yes Status: Acute Qualifiers: Pneumonia type: due to unspecified organism Laterality: right Lung location: lower lobe of lung Qualified Code(s): J18.1 - Lobar pneumonia, unspecified organism (3) UTI (urinary tract infection) Onset Date: 12/15/17 Current Visit: Yes Status: Acute Qualifiers: Urinary tract infection type: acute cystitis Hematuria presence: without hematuria Qualified Code(s): N30.00 - Acute cystitis without hematuria (4) Volume overload Onset Date: 12/15/17 Current Visit: Yes Status: Acute (5) Kidney transplant recipient Onset Date: 12/15/17 Current Visit: Yes Status: Chronic - Plan Case discussed with PA. Agree with above plan <Pat Delgado - Last Filed: 12/15/17 14:49>
[2017-12-15] MEDS ORDERED: NA CHLORIDE 0.9% 50 ML ONE (12:36)
[2017-12-15 17:08] LABS: Absolute Lymphocytes (CBC) 0.3 K/uL (0.7-4.9); Absolute Monocytes 0.3 K/uL (0.1-1.3); Absolute Neutrophil 5.3 K/uL (1.8-8.0); Basophils % 0.2 % (0-1.3); Eosinophils % 0.3 % (0-4.4); Hematocrit 25.5 % (39.6-49.0); Lymphocytes % 4.5 % (15.3-44.8); MCH 28.6 pg (27.0-35.0); MCV 86.7 fL (80-100); MPV 9.1 fL (7.6-11.3); Monocytes % 5.2 % (3.3-12.3); RBC Red Blood Cell Count 2.94 M/uL (4.33-5.43)
[2017-12-15 17:23] LABS: Potassium 5.2 mmol/L (3.5-5.1)
[2017-12-15 19:00] LABS: Hematocrit 26.1 % (39.6-49.0)
[2017-12-15] MEDS: TACROLIMUS 4 MG PO SCH (21:00)
[2017-12-15] MEDS: MYCOPHENOLATE MOFETIL 1000 MG PO SCH (21:00)
[2017-12-15] MEDS: ROSUVASTATIN 10 MG TAB PO SCH (22:30)
--- NOTE | 2017-12-16 00:08 | PN ---
Date of Progress Note: 12/15/2017 Chief Complaint: Chronic kidney disease. Renal transplant. History Of Present Illness: The patient is a 52-year-old man with history of hypertension, hyperlipidemia, end-stage renal disease, history of dialysis therapy for at least 6 years. The patient has cadaveric renal transplant, developed chronic rejection. Baseline creatinine level is 3.5. He came to the hospital because of severe weakness, shortness of breath, legs edema. He was found elevated BUN and creatinine today. He was found to have severe hyperkalemia and potassium level was found to be elevated up to 6.5. He received Kayexalate. Potassium level was 5.9, and after Kayexalate, improved to 5.2. The patient developed metabolic acidosis, bicarbonate is 15, and is fluctuating from 15 to 17. BUN is 95, creatinine 4.7. Review of Systems: Lungs: The patient denies PND or orthopnea. Cardiovascular: Denies chest pain or palpitation. GI: Complaining of some loose bowel movements after he received Kayexalate. Extremities: has legs edema. PE NAD , benito; respiratory effort CV S1, S2, RRR Abdomen, obese , normal bowel sounds Legs severe edema Imaging: Renal ultrasound showed mild hydronephrosis of the transplanted kidney without change since 2013. Laboratory Data: Sodium 136, potassium 5.9, chloride 110, CO2 17, BUN 91, creatinine 4.5, glucose 282. On December 14, BUN was 18 and creatinine 4.3. Impression And Plan: 1. Prerenal azotemia. Plan is to start IV fluids. 2. Metabolic acidosis. The patient will have sodium bicarbonate to treat metabolic acidosis. 3. Hyperkalemia. The patient received Kayexalate. 4. Diabetes mellitus. Blood glucose is elevated. Adjust insulin. 5. Kidney transplant. The patient is on CellCept and prednisone. The patient has chronic rejection. The patient may need to start dialysis if renal function does not improve. 6. Hydronephrosis, related to kidney transplant. Recommend Urology consultation. I spent total 36 min including 26 min to coordinate care plan. SIDNEY/SAURABH Voice ID: [id number] Report ID: [id number] CAM[place]
[2017-12-16] MEDS: PIPER/TAZO/NS 2.25gm 2.25 GM/50 ML BAG IVPB SCH ×3 (01:05→17:29)
[2017-12-16] MEDS ORDERED: METOPROLOL TARTRATE 5 MG/5 ML INJ IV STA ×2 (03:49→04:11)
[2017-12-16] MEDS ORDERED: SODIUM BICARB 50 MEQ/50ML VIAL ONE (04:13)
[2017-12-16] MEDS ORDERED: D5W 1,000 ML IV ONE (04:14)
[2017-12-16] MEDS: D5W 1,000 ML with NA BICARB 8.4% 50 MEQ IV SCH ×4 (04:23→18:00)
[2017-12-16 05:24] LABS: Absolute Lymphocytes (CBC) 0.4 K/uL (0.7-4.9); Absolute Monocytes 0.4 K/uL (0.1-1.3); Absolute Neutrophil 5.4 K/uL (1.8-8.0); Basophils % 0.3 % (0-1.3); Hematocrit 24.9 % (39.6-49.0); MCH 29.4 pg (27.0-35.0); MCV 87.3 fL (80-100); MPV 8.8 fL (7.6-11.3); Monocytes % 6.3 % (3.3-12.3); RBC Red Blood Cell Count 2.85 M/uL (4.33-5.43)
[2017-12-16 05:46] LABS: Albumin 3.2 g/dL (3.4-5.0); Bilirubin Total 0.6 mg/dL (0.2-1.0); Phosphorus 4.8 mg/dL (2.5-4.9); Potassium 4.7 mmol/L (3.5-5.1); Protein, Total 6.9 g/dL (6.4-8.2)
--- NOTE | 2017-12-16 05:54 | P.PN ---
Subjective Date of Service: 12/16/17 Chief Complaint: Insomnia Patient's renal function has worsened. His renal function appears to be plateauing. It appears he is rechecking is kidney. He is on immunosuppressants. Initial chest x-ray indicated that he may have a right middle lobe pneumonia. Will repeat the chest x-ray at this time. Review of Systems 10-point ROS is otherwise unremarkable Physical Examination - Vital Signs Temperature: 98.8 F Blood Pressure: 178/79 Pulse: 77 Respirations: 20 Pulse Ox (%): 93 - Physical Exam General: Alert, In no apparent distress HEENT: Atraumatic, PERRLA, EOMI Neck: Supple, JVD not distended Respiratory: Clear to auscultation bilaterally, Normal air movement Cardiovascular: Regular rate/rhythm, Normal S1 S2, No murmurs Gastrointestinal: Normal bowel sounds, Soft and benign, Non-distended, No tenderness Musculoskeletal: No clubbing, No swelling, No tenderness - Studies Microbiology Data (last 24 hrs): 12/14/17 08:13 Blood - Blood Anaerobic Blood Culture - Final Medications List Reviewed: Yes Assessment & Plan - Problems (Diagnosis) (1) DOUGLAS (acute kidney injury) Onset Date: 12/15/17 Current Visit: Yes Status: Acute (2) PNA (pneumonia) Onset Date: 12/15/17 Current Visit: Yes Status: Acute Qualifiers: Pneumonia type: due to unspecified organism Laterality: right Lung location: lower lobe of lung Qualified Code(s): J18.1 - Lobar pneumonia, unspecified organism (3) UTI (urinary tract infection) Onset Date: 12/15/17 Current Visit: Yes Status: Acute Qualifiers: Urinary tract infection type: acute cystitis Hematuria presence: without hematuria Qualified Code(s): N30.00 - Acute cystitis without hematuria (4) Volume overload Onset Date: 12/15/17 Current Visit: Yes Status: Acute (5) Kidney transplant recipient Onset Date: 12/15/17 Current Visit: Yes Status: Chronic - Plan Plan: 1. Continue with gentle hydration 2. Patient with acidosis and will give some bicarb solution 3. Out of bed and ambulate 4. Monitor renal function closely; if renal function continues to worsen patient may not be able to get more aggressive care in the future. 5. Continue to hydrate at this time. - Advance Directives Does patient have a Living Will: No Does patient have a Durable POA for Healthcare: No - Code Status/Comfort Care Code Status Assessed: Yes Code Status: Full Code Critical Care: No Time Spent Managing PTS Care (In Minutes): 45
[2017-12-16] MEDS: NA CHLORIDE 0.9% 1,000 ML IV SCH (08:00)
[2017-12-16] MEDS: TACROLIMUS 4 MG PO SCH ×2 (09:00→21:00)
[2017-12-16] MEDS: MYCOPHENOLATE MOFETIL 1000 MG PO SCH ×2 (09:00→21:00)
[2017-12-16] MEDS: INSULIN -REGULAR HUMAN 50 UNIT/0.5 ML ML SQ SCH ×4 (09:25→21:18)
[2017-12-16] MEDS: LABETALOL HCL 100 MG TAB PO SCH ×2 (09:26→21:17)
[2017-12-16] MEDS: SODIUM BICARB 325 MG TAB PO SCH ×2 (09:26→21:23)
[2017-12-16] MEDS: predniSONE 10 MG TAB PO SCH (09:26)
[2017-12-16] MEDS: AMLODIPINE 10 MG TAB PO SCH (09:26)
[2017-12-16] MEDS: ROSUVASTATIN 10 MG TAB PO SCH (21:17)
[2017-12-16] MEDS ORDERED: GLUCAGON 1 MG/VIAL IM PRN (22:50)
[2017-12-16] MEDS ORDERED: D50W 25 GM/50 ML SYRINGE IV PRN (22:50)
--- NOTE | 2017-12-17 00:30 | PN ---
Date of Progress Note: 12/16/2017 Subjective: The patient is feeling some shortness of breath. According to him, his shortness of [place] ath is somewhat better yesterday when he was on diuresis. Still complaining from edema. Physical Examination: Vital Signs: Blood pressure 144/86, pulse of 100, afebrile. The patient had good urine output of 60 0. Chest: Crackles bilateral. Heart: S1, S2. Regular. Abdomen: Soft. Nontender. Extremities: +2 edema. Had fat tissue grown on the right rodriguez. Medications: Current medications the patient on include; 1.Zosyn 2.25. 2.Eliquis 2.5 b.i.d. 3.Epogen. 4.Amlodipine. 5.Metoprolol. 6.Atorvastatin. 7.Tylenol. 8.Sodium bicarb 650 b.i.d. 9.Zofran. 10.Insulin. 11.Prednisone 10 mg daily. 12.CellCept 1000 b.i.d. 13.Prograf 4 mg b.i.d. Laboratory Data: WBC 6.2, H and H 8.4/24.9, platelets 107. Sodium 139, potassium 4.7, bicarb 16, ch loride 111, BUN 93, creatinine 4.8, GFR of 13, calcium 9.8, phosphorus 4.8. PTH 487. TSH 1.2. SPEP is still pending. Protein creatinine is 2.7. Ketone was negative. Serology negative. 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 I am going to go ahead and disc ontinue IV fluid. I will monitor the patient closely. We will go ahead and send for a Prograf level . 2.Anemia, secondary to renal failure, with iron deficiency anemia given the active infection. I am going to be monitor. 3.Pneumonia culture is still pending. We will continue Zosyn. 4.Urinary tract infection, mixed eveertt. The patient is already on Zosyn. We will follow up. 5.Hyperglycemia, possible new-onset diabetes. I going to start the patient on Lantus to maintain be tter control. Continue sliding scale. 6.Hypertension, uncontrolled. We held the lisinopril and ANTONIO inhibitor. Given the condition of the patient and the acute kidney injury, I am going to go ahead and add hydralazine for better blood pre ssure control. 7.Acidosis. We will increase sodium bicarb. 8.Hyperkalemia, resolved. 9.Transplant. Continue current immunosuppressive treatment. We will follow up Prograf level. MISSY Voice ID: [id number] Report ID: [id number]
[2017-12-17] MEDS: PIPER/TAZO/NS 2.25gm 2.25 GM/50 ML BAG IVPB SCH ×2 (00:50→08:34)
[2017-12-17 05:30] LABS: Absolute Lymphocytes (CBC) 0.4 K/uL (0.7-4.9); Absolute Monocytes 0.5 K/uL (0.1-1.3); Absolute Neutrophil 4.6 K/uL (1.8-8.0); Basophils % 0.5 % (0-1.3); Eosinophils % 2.1 % (0-4.4); Lymphocytes % 7.2 % (15.3-44.8); MCH 28.7 pg (27.0-35.0); MCV 86.6 fL (80-100); MPV 9.5 fL (7.6-11.3); Monocytes % 8.2 % (3.3-12.3); RBC Red Blood Cell Count 2.77 M/uL (4.33-5.43)
--- NOTE | 2017-12-17 05:32 | P.PN ---
Date of Service: 12/16/17 Spoke with patient and will do a chest x-ray this morning. Will also get started on transfer to Nephrology transplant team at [facility] in [facility]. Patient renal function has slowly worsened. If this does not improve he may unfortunately lose his transplanted kidney. May be able to switch his antibiotics over to oral antibiotics if the chest x- ray shows resolution of his pneumonia.
[2017-12-17 05:39] LABS: Albumin 2.9 g/dL (3.4-5.0); Bilirubin Total 0.6 mg/dL (0.2-1.0); Phosphorus 4.8 mg/dL (2.5-4.9); Potassium 4.2 mmol/L (3.5-5.1); Protein, Total 6.4 g/dL (6.4-8.2)
[2017-12-17] MEDS ORDERED: INSULIN DETEMIR 100 UNIT/1 ML INSULIN SQ SCH (08:00)
--- NOTE | 2017-12-17 08:17 | EKG ---
Test Date: 2017-12-16 Test Time: 04:06:01 Rn Telephonic: RT-Ryan MEASUREMENT RESULTS: Intervals: Rate: 101 NJ: QRSD: 96 QT: 362 QTc: 469 Ranger: P: NJ: QRS: 4 T: 22 INTERPRETIVE STATEMENTS: Atrial fibrillation with rapid ventricular response Abnormal ECG Compared to ECG 12/14/2017 08:30:39 Sinus rhythm no longer present Electronically Signed On 12-17-17 08:16:29 CDT by Edwardo Lovelace
[2017-12-17] MEDS: INSULIN -REGULAR HUMAN 50 UNIT/0.5 ML ML SQ SCH ×4 (08:34→21:05)
[2017-12-17] MEDS: AMLODIPINE 10 MG TAB PO SCH (08:35)
[2017-12-17] MEDS: predniSONE 10 MG TAB PO SCH (08:35)
[2017-12-17] MEDS: SODIUM BICARB 325 MG TAB PO SCH ×3 (08:35→21:03)
[2017-12-17] MEDS: LABETALOL HCL 100 MG TAB PO SCH ×2 (08:35→21:03)
[2017-12-17] MEDS: HYDRALAZINE HCL 25 MG TABLET PO SCH ×2 (08:35→21:04)
[2017-12-17] MEDS: TACROLIMUS 4 MG PO SCH ×2 (08:41→21:00)
[2017-12-17] MEDS: MYCOPHENOLATE MOFETIL 1000 MG PO SCH ×2 (08:41→21:00)
--- NOTE | 2017-12-17 09:28 | RAD REPORT ---
EXAM DESCRIPTION: Matteo Single View12/17/2017 5:59 am CLINICAL HISTORY: Chest pain COMPARISON: December 14 FINDINGS: The right lung opacities have partially resolved. The heart remains enlarged IMPRESSION: Significant improvement in a right pneumonia
--- NOTE | 2017-12-17 12:21 | CON ---
Date of Consultation: 12/17/[address] Elliott's service on 12/14/2017. I am seeing the patient on 12/17/2017. Reason For Consultation: Atrial fibrillation. History Of Present Illness: Mr. Miranda is a 52-year-old male who had a rather complex past medica l history, but has had a history of chronic atrial fibrillation. He sees Dr. Kingston for that. He is on Eliquis and labetalol for that. He had a negative Lexiscan in October of 2017. He had an echocardi ogram showing severe pulmonary hypertension but normal ejection fraction, also in October of 2017 he was here more for renal failure than anything else. He has had a history of end-stage renal disease, us ed to be on dialysis, had a kidney transplant 14 years ago. He takes CellCept and Prograf. Dr. Chalo Lancaster takes care of him from a Nephrology standpoint as well as Dr. Walter. He has a history o f hypertension, dyslipidemia, anemia, and morbid obesity. He weighs 352 pounds today. He also has n ow new onset diabetes. He had came in mostly with a right-sided pneumonia, was noted to be in atrial fibrillation. Kidney function has deteriorated. Dr. Lopez is following. He is now holding his CellCept and increasing his steroid to treat him as rejection. There has been some suggestion that wilfred dhillon may end up being on hemodialysis again. The patient denied any cardiac symptoms. Allergies: NONE. Review of Systems: Negative. Social History: Negative. Family History: Noncontributory. Medications: At home include prednisone, CellCept, Prograf, clonidine, Crestor, labetalol, Eliquis a nd Norvasc. Physical Examination: Vital Signs: He weighed 352 pounds. Blood pressure is 145/71. HEENT: Negative. Neck: Supple. No bruit. Chest: Clear. Cardiac: Exam revealed irregularly irregular rhythm and rate with a tricuspid regurgitation murmur. No gallops or rubs. Abdomen: Obese, but benign. Extremities: Revealed 2+ edema. Laboratory Data: Creatinine is 4.5, hemoglobin 7.9, glucose 312. EKG, atrial fibrillation. Chest x -ray is unremarkable. Impression And Plan: 1.Chronic atrial fibrillation, on Eliquis and labetalol. No need to change any therapy. He has nor mal Cardiolite, has severe pulmonary hypertension by echo. 2.[id number] renal failure handled by Dr. Lopez. He is getting IV diuresis, more steroids for possible rejection. Dialysis is still an option. 3.Severe pulmonary hypertension by echo. 4.Anemia. Just received 1 unit while he is in the hospital. 5.New onset diabetes, needs to be controlled and treated. 6.Hypertension, well controlled. 7.Dyslipidemia. 8.Status post kidney transplant 14 years ago. 9.Morbid obesity. 10.We will continue to follow Mr. Miranda along with Dr. Lopez and Dr. Elliott. I will make Dr. Kingston aware of his progress. NB/MODL Voice ID: [id number] Report ID: [id number]
--- NOTE | 2017-12-17 13:16 | P.PN ---
Subjective Date of Service: 12/17/17 Chief Complaint: Insomnia Patient seen and examined at bedside with RN. Chart reviewed. Case discussed with nephrology and cardiology at this time. Patient states he has been having some nausea and vomiting. Denies having any shortness of breath at this time states that his breathing difficulty has resolved. No other complaints to offer at this time. Review of Systems General: As per HPI Physical Examination - Vital Signs Temperature: 99.7 F Blood Pressure: 146/91 Pulse: 108 Respirations: 20 Pulse Ox (%): 94 - Physical Exam General: Alert, In no apparent distress, Obese HEENT: Atraumatic, PERRLA, EOMI Neck: Supple, JVD not distended Respiratory: Normal air movement, Expiratory wheezes, Inspiratory wheezes Cardiovascular: Normal S1 S2, Irregular heart rate/rhythm Gastrointestinal: Normal bowel sounds, Soft and benign, Non-distended, No tenderness Musculoskeletal: No tenderness Integumentary: No rashes Neurological: Normal speech, Normal tone, Normal affect Lymphatics: No axilla or inguinal lymphadenopathy - Studies Medications List Reviewed: Yes Assessment & Plan - Problems (Diagnosis) (1) DOUGLAS (acute kidney injury) Onset Date: 12/15/17 Current Visit: Yes Status: Acute Plan: DOUGLAS on CKD. Pt is a kidney transplant patient. Had transplant 14 years ago. Had HD at one point and then DC from it. Now with elevated BUN.CR causing Volume overload. -IV diuresisi for now -Nephrology On board -Considering possible HD -Will F.u with further reccs -No fluids due to volume overload (2) PNA (pneumonia) Onset Date: 12/15/17 Current Visit: Yes Status: Acute Plan: Possible PNA on the right lower lung base. Xray and CT with PNA. However it could be Fluid overload as well. -Currently on IV abx -Will continue for now -IS at bedside. Qualifiers: Pneumonia type: due to unspecified organism Laterality: right Lung location: lower lobe of lung Qualified Code(s): J18.1 - Lobar pneumonia, unspecified organism (3) UTI (urinary tract infection) Onset Date: 12/15/17 Current Visit: Yes Status: Acute Plan: Acute UTI. -UA with URI -Culture + for mixed everett. Most likely contaminant. -Will repeat UA and culture if needed Qualifiers: Urinary tract infection type: acute cystitis Hematuria presence: without hematuria Qualified Code(s): N30.00 - Acute cystitis without hematuria (4) Volume overload Onset Date: 12/15/17 Current Visit: Yes Status: Acute Plan: Volume overload due to Renal Insufficiency -Nephrology consulted. -IV diuresis for now Qualifiers: Hypervolemia type: other Qualified Code(s): E87.79 - Other fluid overload (5) Kidney transplant recipient Onset Date: 12/15/17 Current Visit: Yes Status: Chronic (6) Afib Current Visit: Yes Status: Chronic Qualifiers: Atrial fibrillation type: chronic Qualified Code(s): I48.2 - Chronic atrial fibrillation (7) Morbid obesity due to excess calories Current Visit: Yes Status: Chronic (8) HTN (hypertension) Current Visit: Yes Status: Chronic Qualifiers: Hypertension type: essential hypertension Qualified Code(s): I10 - Essential (primary) hypertension Discharge Plan: Home Plan to discharge in: 24 Hours - Code Status/Comfort Care Code Status Assessed: Yes Critical Care: No
[2017-12-17] MEDS ORDERED: FUROSEMIDE 40 MG/4 ML VIAL IV ONE (13:22)
[2017-12-17] MEDS ORDERED: SOD FERRIC GLUC COMPLX/SUCROSE 250 MG in NA CHLORIDE 0.9% 250 ML IV SCH (14:00)
[2017-12-17 15:58] LABS: Hepatitis C Virus RNA (PCR)log <1.18 log IU/mL
[2017-12-17] MEDS ORDERED: NA CHLORIDE 0.9% 100 ML ONE (17:23)
[2017-12-17] MEDS: ROSUVASTATIN 10 MG TAB PO SCH (21:04)
[2017-12-17 23:24] LABS: Hematocrit 27.2 % (39.6-49.0)
--- NOTE | 2017-12-18 01:23 | PN ---
Date of Progress Note: 12/17/2017 Subjective: The patient is doing better. Shortness of breath is stabilized. Physical Examination: Vital Signs: Blood pressure 143/93, pulse of 119, afebrile. General: The patient had good urine output. Chest: Crackles faint bilateral. Heart: S1, S2. Regular. Abdomen: Soft, nontender. Extremities: +2 edema. Laboratory Data: H and H 7.24. Sodium 142, potassium 4.2, bicarb 17, BUN 93, creatinine 4.5, calc ium 9.4, phosphorus 4.8. PTH of 487. [place] level still pending. Hepatitis C negative. Medications: Current medications the patient is on include, 1.Levaquin 250 daily. 2.Eliquis. 3.Epogen. 4.Norvasc 10. 5.Hydralazine 25 b.i.d. 6.Crestor. 7.Sodium bicarb 650 t.i.d. 8.Lantus 5 daily. 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 I am going to continue CellCept and Prograf. We will follow up Prograf level. We will sta rt tapering the prednisone. Yesterday we decreased 10. Hopefully we can taper him down to his maint enance dose 7.5. 2.Acidosis. Continue bicarb. 3.Pulmonary hypertension with congestive heart failure. I am going to dose the patient with single dose of Lasix. 4.Iron deficiency anemia. Start IV iron. 5.Pneumonia, culture negative. We will switch to oral, and we will follow up the patient. 6.Diabetes, started on Lantus. We will increase Lantus to 8, and we will follow up. Case discussed in details with the patient in the presence of the family and agreed on the plan. Discussed with Dr Enrique Reis, agreed. AMI/SAURABH Voice ID: [id number] Report ID: [id number]
[2017-12-18 02:49] LABS: HBsAG Nonreactive (Nonreactive)
[2017-12-18 05:08] LABS: Absolute Lymphocytes (CBC) 0.4 K/uL (0.7-4.9); Absolute Monocytes 0.5 K/uL (0.1-1.3); Absolute Neutrophil 4.5 K/uL (1.8-8.0); Basophils % 0.4 % (0-1.3); Eosinophils % 1.2 % (0-4.4); MCH 28.9 pg (27.0-35.0); MCV 86.5 fL (80-100); MPV 8.5 fL (7.6-11.3); Monocytes % 8.5 % (3.3-12.3); RBC Red Blood Cell Count 2.89 M/uL (4.33-5.43)
[2017-12-18 05:21] LABS: Albumin 2.9 g/dL (3.4-5.0); Phosphorus 4.7 mg/dL (2.5-4.9); Potassium 4.3 mmol/L (3.5-5.1)
[2017-12-18] MEDS: LABETALOL HCL 100 MG TAB PO SCH ×2 (08:59→21:14)
[2017-12-18] MEDS: MYCOPHENOLATE MOFETIL 1000 MG PO SCH ×2 (09:00→21:00)
[2017-12-18] MEDS: TACROLIMUS 4 MG PO SCH ×2 (09:00→21:00)
[2017-12-18] MEDS: AMLODIPINE 10 MG TAB PO SCH (09:01)
[2017-12-18] MEDS: levoFLOXacin 250 MG TAB PO SCH (09:02)
[2017-12-18] MEDS: HYDRALAZINE HCL 25 MG TABLET PO SCH ×3 (09:02→21:15)
[2017-12-18] MEDS: predniSONE 10 MG TAB PO SCH (09:02)
[2017-12-18] MEDS: SODIUM BICARB 325 MG TAB PO SCH ×3 (09:03→21:14)
[2017-12-18] MEDS: INSULIN DETEMIR 100 UNIT/1 ML INSULIN SQ SCH (09:03)
[2017-12-18] MEDS: INSULIN -REGULAR HUMAN 50 UNIT/0.5 ML ML SQ SCH ×4 (09:04→21:17)
--- NOTE | 2017-12-18 11:16 | P.CNS ---
Date of Consult: 12/18/17 Reason for Consult: Pulmonary hypertension Primary Care Provider: VANESA Chief Complaint: Shortness of breath History of Present Illness: Patient is 52 years of age with a history and stage renal disease status post renal transplant admitted with 3 day history of increasing dyspnea slight fever he has chronic lower extremity edema. Chest x-ray is improved echocardiogram showed pulmonary hypertension with no evidence of right ventricular dilatation no prior history of any pulmonary or cardiac problems apart from AFib patient is anti coagulated on Eliquis he has had a borderline temp since admission chest x-ray showed a right lower lobe infiltrate which is cleared Allergies No Known Allergies Allergy (Verified 12/14/17 14:12) Home Medications: Allopurinol 1 tab PO BID 12/14/17 Amlodipine Besylate 10 mg PO BID 12/14/17 Amlodipine [Norvasc] 10 mg PO DAILY 12/14/17 Apixaban [Eliquis] 2.5 mg PO BID 12/14/17 Epoetin [Procrit*] 1 vial SQ DIRECTED 12/14/17 Labetalol HCl [Trandate] 400 mg PO BID 12/14/17 Mycophenolate Mofetil [Cellcept] 1,000 mg PO BID 12/14/17 Rosuvastatin Calcium 10 mg PO BEDTIME 12/14/17 Tacrolimus [Prograf] 4 mg PO BID 12/14/17 cloNIDine HCl [Clonidine HCl] 1 tab PO BID 12/14/17 predniSONE [Prednisone*] 7.5 mg PO DAILY 12/14/17 - Past Medical/Surgical History Diabetic: No -: AFIB -: ANEMIA -: GOUT -: HYERTENSION -: RIGHT EYE BLIND -: HIGH CHOLESTEROL -: History of sleep apnea -: RIGHT KIDNEY TRANSPLANT 2001 -: LEFT FISTULA GRAFT 2001 - Family History Mother Medical History: Other (see notes) Notes: NO MEDICAL HISTORY Father Medical History: Stroke, Other (see notes) Notes: PROSTRATE CANCER - Social History Smoking Status: Never smoker Alcohol use: No CD- Drugs: No Caffeine use: Yes Place of Residence: Home Review of Systems General: Weakness Respiratory: SOB with Excertion Cardiovascular: Edema (Bilateral chronic edema) Physical Examination Temp Pulse Resp BP Pulse Ox 97.6 F 118 H 18 182/75 H 93 12/18/17 08:00 12/18/17 09:01 12/18/17 08:00 12/18/17 09:01 12/18/17 08:00 General: Alert, Oriented x3 HEENT: Atraumatic Neck: Supple Respiratory: Clear to auscultation bilaterally, Diminished Cardiovascular: Normal S1 S2, Edema (Chronic lower extremity edema he does have a bulge in the left tibial region from is prior trauma no evidence of an infection) Gastrointestinal: Normal bowel sounds, Soft and benign Musculoskeletal: No clubbing Integumentary: No rashes, No breakdown - Problems (1) Pulmonary hypertension Current Visit: Yes Status: Acute Plan: Patient is 52 years of age with end-stage renal disease status post renal transplant admitted with worsening dyspnea he did have a right lower lobe infiltrate which seems to have improved significantly most likely is volume overload these creatinine is significantly elevated white count is normal borderline temp possible infection patient has a metabolic acidosis consistent with his renal insufficiency is cultures are negative saturation is 95% on 1-1/ 2 L currently on Lasix daily He probably has secondary pulmonary hypertension secondary to possibly diastolic dysfunction he is already anti coagulated as important to rule out obstructive sleep apnea he needs another sleep study was scheduled at the [facility] patient is a high risk he does complain of excessive daytime somnolence possible snoring prior history of sleep apnea patient's pro calcitonin is normal tsh is also normal blood pressure elevated I have advised him to fluid restrict patient has normal left ventricular function continue with antibiotics his x-ray has improved
--- NOTE | 2017-12-18 12:17 | P.PN ---
Subjective Date of Service: 12/18/17 Primary Care Provider: VANESA Chief Complaint: Shortness of breath Patient seen and examined at bedside with RN. Chart reviewed. Case discussed with nephrology and cardiology at this time. Patient states he has been having some nausea and vomiting. Denies having any shortness of breath at this time states that his breathing difficulty is present this morning. States that every time he walks around the block he gets real short of breath and his oxygen goes down to 85%.. No other complaints to offer at this time. Review of Systems General: As per HPI Physical Examination - Vital Signs Temperature: 97.6 F Blood Pressure: 182/75 Pulse: 118 Respirations: 18 Pulse Ox (%): 93 - Physical Exam General: Alert, Oriented x3, Acute distress, Obese HEENT: Atraumatic, PERRLA, EOMI Neck: Supple, JVD not distended Respiratory: Clear to auscultation bilaterally, Normal air movement Cardiovascular: Regular rate/rhythm, Normal S1 S2 Gastrointestinal: Normal bowel sounds, No tenderness Musculoskeletal: No tenderness Integumentary: No rashes Neurological: Normal speech, Normal tone, Normal affect Lymphatics: No axilla or inguinal lymphadenopathy - Studies Medications List Reviewed: Yes Assessment & Plan - Problems (Diagnosis) (1) PNA (pneumonia) Onset Date: 12/15/17 Current Visit: Yes Status: Acute Plan: Right lower lobe pneumonia noted on the chest CT and chest x-ray. -On IV antibiotics at this time and will collect sputum culture. -Will continue with the lab monitoring and repeat x-ray in the morning. Qualifiers: Pneumonia type: due to unspecified organism Laterality: right Lung location: lower lobe of lung Qualified Code(s): J18.1 - Lobar pneumonia, unspecified organism (2) UTI (urinary tract infection) Onset Date: 12/15/17 Current Visit: Yes Status: Acute Plan: UAs positive for leukesterase -Patient started on IV antibiotics -cultures negative for bacteria. Consistent with mixed everett months. Most likely contaminant. Qualifiers: Urinary tract infection type: acute cystitis Hematuria presence: without hematuria Qualified Code(s): N30.00 - Acute cystitis without hematuria (3) Volume overload Onset Date: 12/15/17 Current Visit: Yes Status: Acute Plan: Volume overload with bilateral lower leg extremity edema most likely secondary to renal insufficiency. -Patient started on IV Lasix -Nephrology Consulted. Appreciated Reccs -Patient might require hemodialysis , however will wait for further recommendations from nephrology at this time. Qualifiers: Hypervolemia type: other Qualified Code(s): E87.79 - Other fluid overload (4) DOUGLAS (acute kidney injury) Onset Date: 12/15/17 Current Visit: Yes Status: Acute Plan: Acute kidney injury most likely secondary to UTI verses acute worsening of the chronic kidney disease. -Nephrology consulted at this time. -Patient does have a history of hemodialysis, in the past however was stopped due to improvement in his kidney function. -Will await nephrology recommendations at this time in terms of starting hemodialysis -Patient also on steroids due to possibility of acute rejection of the transplanted kidney. (5) Kidney transplant recipient Onset Date: 12/15/17 Current Visit: Yes Status: Chronic (6) SKY (obstructive sleep apnea) Current Visit: Yes Status: Acute Plan: Patient possibility of SKY with snoring and night-time apnea. Pulmonology was consulted. Recommends getting a L patient sleep study. Patient to have CPAP here in the hospital while sleeping. Patient also educated extensively weight- loss diet and exercise. (7) Morbid obesity Current Visit: Yes Status: Acute Discharge Plan: Home Plan to discharge in: 48 Hours - Code Status/Comfort Care Code Status Assessed: Yes Critical Care: No
[2017-12-18 13:48] LABS: Blood O2 Saturation 95.6 % (92-98.5)
--- NOTE | 2017-12-18 16:26 | PN ---
Date of Progress Note: 12/18/2017 Subjective: The patient was admitted with acute kidney injury on chronic kidney disease with transpl anted kidney. The patient recovered well. Objective: Vital Signs: Blood pressure of 182/75, pulse of 118, afebrile. The patient's hypoxemia down to 91 on 2 L. Chest: Faint crackles on the base, bilateral, more prominent on the right base. Heart: S1, S2. Regular. Abdomen: Soft, nontender. Extremities: +1 edema. Laboratory Data: WBC 8.5, H and H 8.4/25, platelet of 110. Sodium 143 potassium 4.3, bicarb 17, chl oride 115, BUN 88, creatinine 4.1, GFR up to 15. Calcium 9.2, phosphorus 4.8, albumin 2.9. SPEP is still pending. Current Medications: The patient is on includes; 1.Levaquin 250. 2.IV iron 250 every 3 days. 3.Eliquis 2.5. 4.Epogen 20,000 weekly. 5.Amlodipine 10. 6.Hydralazine 25 b.i.d. 7.Tylenol. 8.Sodium bicarb 650 t.i.d. 9.Zofran. 10.Prednisone 10 mg daily. 11.Lantus 8 units. 12.Prograf 4 mg b.i.d. 13.CellCept 1 g b.i.d. The patient's blood culture still negative. Urine culture, contamination. Assessment And Plan: 1.Chronic kidney disease, solitary kidney, status post renal transplant with recovery, secondary to cardiorenal, still on the wet side. I am going to place the patient on standard dose of Lasix 40 mg daily. We will monitor the patient. 2.Hypertension, uncontrolled. We will add Lasix standard dose, and we will increase hydralazine to 50 t.i.d. We will keep calcium channel myles given the pulmonary hypertension. 3.Hypoxemia, multifactorial, secondary to obstructive sleep apnea, pulmonary hypertension, and pneum onia. We will consult pulmonary. Continue on Norvasc and diuresis for the time being. 4.Acidosis, better. Continue sodium bicarb. 5.Iron deficiency anemia. Continue IV iron. Continue Epogen. 6.Pneumonia. Blood culture negative. Continue Levaquin. Case discussed with the patient and staff. Agreed on the plan. AMI/SAURABH Voice ID: [id number] Report ID: [id number]
[2017-12-18] MEDS ORDERED: predniSONE 5 MG TAB PO SCH (21:00)
[2017-12-18] MEDS: ROSUVASTATIN 10 MG TAB PO SCH (21:15)
[2017-12-19 05:38] LABS: Albumin 3.2 g/dL (3.4-5.0); Phosphorus 4.9 mg/dL (2.5-4.9); Potassium 4.7 mmol/L (3.5-5.1)
[2017-12-19] MEDS: LABETALOL HCL 100 MG TAB PO SCH (08:54)
[2017-12-19] MEDS: SODIUM BICARB 325 MG TAB PO SCH ×2 (08:55→15:20)
[2017-12-19] MEDS: HYDRALAZINE HCL 25 MG TABLET PO SCH ×2 (08:56→15:19)
[2017-12-19] MEDS: AMLODIPINE 10 MG TAB PO SCH (08:56)
[2017-12-19] MEDS: MYCOPHENOLATE MOFETIL 1000 MG PO SCH (09:00)
[2017-12-19] MEDS ORDERED: FUROSEMIDE 40 MG/4 ML VIAL IV SCH (09:00)
[2017-12-19] MEDS: levoFLOXacin 250 MG TAB PO SCH (09:00)
[2017-12-19] MEDS: TACROLIMUS 4 MG PO SCH (09:00)
[2017-12-19] MEDS: INSULIN -REGULAR HUMAN 50 UNIT/0.5 ML ML SQ SCH ×2 (09:01→12:57)
[2017-12-19] MEDS: INSULIN DETEMIR 100 UNIT/1 ML INSULIN SQ SCH (09:02)
[2017-12-19] MEDS ORDERED: FUROSEMIDE 40 MG TABLET PO SCH (12:00)
[2017-12-19 14:01] VITALS: O2SAT 96
[2017-12-19 14:56] VITALS: TEMP 97.8
--- NOTE | 2017-12-19 15:04 | P.DS ---
Admission Date: 12/14/17 Discharge Date: 12/19/17 Primary Care Provider: OOT Disposition: ROUTINE DISCHARGE Discharge Condition: GOOD Reason for Admission: Shortness of breath Consultations: Nephrology pulmonology - Problems (1) PNA (pneumonia) Onset Date: 12/15/17 Current Visit: Yes Status: Acute Qualifiers: Pneumonia type: due to unspecified organism Laterality: right Lung location: lower lobe of lung Qualified Code(s): J18.1 - Lobar pneumonia, unspecified organism (2) UTI (urinary tract infection) Onset Date: 12/15/17 Current Visit: Yes Status: Acute Qualifiers: Urinary tract infection type: acute cystitis Hematuria presence: without hematuria Qualified Code(s): N30.00 - Acute cystitis without hematuria (3) Volume overload Onset Date: 12/15/17 Current Visit: Yes Status: Acute Qualifiers: Hypervolemia type: other Qualified Code(s): E87.79 - Other fluid overload (4) DOUGLAS (acute kidney injury) Onset Date: 12/15/17 Current Visit: Yes Status: Acute (5) Kidney transplant recipient Onset Date: 12/15/17 Current Visit: Yes Status: Chronic (6) SKY (obstructive sleep apnea) Current Visit: Yes Status: Acute (7) Morbid obesity Current Visit: Yes Status: Acute Brief History of Present Illness: This is a 52-year-old male with significant past medical history of hypertension , atrial fibrillation, morbid obesity, kidney transplant 14 years ago, was on hemodialysis before, presenting to the ED complaining of having some shortness of breath, cough, fever of T-max of 100 which started about 2-3 days ago. Patient stated that he got real short of breath and thus decided to come to the ER for further workup. Patient kidney transplant team is at [facility]. 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 And has been followed by Dr. Kingston for his chronic atrial fibrillation. In the ER patient was found to have right lower lobe pneumonia along with acute kidney injury and thus was referred over for admission for further care. Initially patient was asked to be transferred to [facility] where his transplant team is given the nature of his acute kidney injury and the possibility of rejection. However patient was not transferred to [facility] due to no available beds at [facility]. Hospital Course: Overall during the hospital stay patient remained stable Patient initially presented to the ER complaining of having fever cough congestion. Chest x-ray was concerning for pneumonia chest CT was done which was also considering provide overload pneumonia and thus was admitted to the hospital for pneumonia has been a candidate of kidney transplant since 14 years ago and has received his kidney 14 years ago at [facility]. Initially patient was attempted to be transferred to [facility] as his advertising sales executive when it came over there to get further care. However [facility] did not have any beds thus the patient was admitted to our hospital for further care. While here in the hospital patient was noted to be volume overloaded and with a KI and thus was given IV Lasix. Nephrology was consulted here. Patient had improvement in his kidney function and thus was continued on Lasix as well. Repeat chest x-ray the next day showed marked improvement in his congestion and pneumonia as well and thus it was thought that patient opacity noted general calcitonin patient was placed on oral antibiotics to go home with to cover for his pneumonia. Pulmonology was also consulted while the patient was here in the hospital and due to dyspnea on exertion. Patient is morbidly obese individual who does appear to have obstructive sleep apnea. Patient uses CPAP machine at night time. Patient had marked improvement in his symptoms. At that time patient was recommended to get a sleep study done on outpatient and follow up with pulmonology outpatient further results and the CPAP machine. Patient demonstrated understanding and thus was discharged home under stable condition after his symptoms had resolved and his kidney function has improved. Patient was to continue taking Lasix 40 mg daily and take Levaquin 250 mg daily for 5 days. Patient will follow up with nephrology and pulmonology in about 1-2 weeks and have repeat BMP done at that time. No other complications noted during the hospital visit. Vital Signs/Physical Exam: Temp Pulse Resp BP Pulse Ox 97.8 F 93 H 20 147/94 H 97 12/19/17 12:00 12/19/17 12:57 12/19/17 12:00 12/19/17 12:57 12/19/17 12:00 General: Alert, In no apparent distress HEENT: Atraumatic, PERRLA, EOMI Neck: Supple, JVD not distended Respiratory: Clear to auscultation bilaterally, Normal air movement Cardiovascular: Regular rate/rhythm, Normal S1 S2 Gastrointestinal: Normal bowel sounds, No tenderness Musculoskeletal: No tenderness Integumentary: No rashes Neurological: Normal speech, Normal tone, Normal affect Lymphatics: No axilla or inguinal lymphadenopathy Laboratory Data at Discharge: WBC 5.4 K/uL (4.3-10.9) 12/18/17 04:51 Hgb 8.4 g/dL (13.6-17.9) L 12/18/17 04:51 Hct 25.0 % (39.6-49.0) L 12/18/17 04:51 Plt Count 110 K/uL (152-406) L 12/18/17 04:51 PT 17.5 SECONDS (9.5-12.5) H 12/14/17 07:55 INR 1.48 12/14/17 07:55 Sodium 144 mmol/L (136-145) 12/19/17 05:03 Potassium 4.7 mmol/L (3.5-5.1) 12/19/17 05:03 BUN 89 mg/dL (7-18) H 12/19/17 05:03 Creatinine 4.00 mg/dL (0.55-1.3) H 12/19/17 05:03 Glucose 253 mg/dL (74-106) H 12/19/17 05:03 Phosphorus 4.9 mg/dL (2.5-4.9) 12/19/17 05:03 Magnesium 2.2 mg/dL (1.8-2.4) 12/15/17 04:52 Total Bilirubin 0.6 mg/dL (0.2-1.0) 12/17/17 04:50 AST 11 U/L (15-37) L 12/17/17 04:50 ALT 7 U/L (12-78) L 12/17/17 04:50 Alkaline Phosphatase 78 U/L (45-117) 12/17/17 04:50 Home Medications: Allopurinol 1 tab PO BID 12/14/17 Amlodipine Besylate 10 mg PO BID 12/14/17 Amlodipine [Norvasc] 10 mg PO DAILY 12/14/17 Apixaban [Eliquis] 2.5 mg PO BID 12/14/17 Epoetin [Procrit*] 1 vial SQ DIRECTED 12/14/17 Labetalol HCl [Trandate] 400 mg PO BID 12/14/17 Mycophenolate Mofetil [Cellcept] 1,000 mg PO BID 12/14/17 Rosuvastatin Calcium 10 mg PO BEDTIME 12/14/17 Tacrolimus [Prograf] 4 mg PO BID 12/14/17 cloNIDine HCl [Clonidine HCl] 1 tab PO BID 12/14/17 predniSONE [Prednisone*] 7.5 mg PO DAILY 12/14/17 Furosemide [Lasix] 40 mg PO DAILY #30 tablet 12/19/17 levoFLOXacin [Levaquin] 250 mg PO DAILY #5 tab 12/19/17 New Medications: Furosemide [Lasix] 40 mg PO DAILY #30 tablet levoFLOXacin [Levaquin] 250 mg PO DAILY #5 tab Patient Discharge Instructions: Please f.u with Dr Perez for Sleep study to be scheduled at [facility]. New medication. Lasix 40mg daily. Levaquin 25mg Daily for 5 days Diet: Regular Activity: Ad norma Followup: Luis Pfeiffer MD [ACTIVE - CAN ADMIT] - 1 Week
[2017-12-19 15:22] VITALS: BP 150/81
[2017-12-19 21:31] LABS: Albumin, (SPE) 3.3 g/dL (3.8-4.8); Alpha-1-Globulins 0.5 g/dL (0.2-0.3); Alpha-2-Globulins 0.9 g/dL (0.5-0.9); Gamma Globulins 0.6 g/dL (0.8-1.7); INTERPRETATION Consistent with
--- NOTE | 2017-12-20 03:35 | PN ---
Date of Progress Note: 12/19/2017 Chief Complaint: Acute kidney injury on chronic kidney disease. Subjective: The patient has renal transplant. The patient developed fluid overload and was treated with diuretics. The patient received Kayexalate for hyperkalemia. Potassium level has improved. Renal function is gradually stabilizing, plateauing. Baseline creatinine level, according to the patient, is 3.5; serum creatinine level improved to 4 and was up to 4.8. Hyperkalemia. Potassium was 6.5. The patient was treated with Kayexalate and hyperkalemia resolved. Review of Systems: Denies fever or chills. Physical Examination: Lungs: Clear to auscultation bilaterally. Heart: S1, S2. Abdomen: Soft, benign. Extremities: Some edema present in both legs. Vital Signs: Blood pressure is 128/80, heart rate 93, respiratory rate is 18, temperature 99.2. Laboratory Data: Hemoglobin 9.4, WBC 5.4, platelet count is 110,000. Sodium 144, potassium 4.7, chloride 115, CO2 of 17, and BUN 80, creatinine 4.0. Impression And Plan: 1. Acute on chronic kidney injury. Renal function somewhat improving. Nonoliguric urine output. 2. Hyperkalemia, controlled, metabolic acidosis. The patient will continue sodium bicarbonate tablets. 3. Renal transplant. The patient will follow up with transplant team as soon as possible. SIDNEY/SAURBAH Voice ID: [id number] Report ID: [id number] [place]
== END 2017-12-19 16:00 | disposition home or self-care (01) | DRG 682 ==
LOC: ER 07:38 → ERHOLD 09:02 → 2ND 12:55
PROVIDERS: ADMIT Family Medicine; ATTEND Family Medicine
DX: N17.9 Acute kidney failure, unspecified (principal); J18.9 Pneumonia, unspecified organism; N30.00 Acute cystitis without hematuria; Z68.42 Body mass index [BMI] 45.0-49.9, adult; E87.2 Acidosis; T86.11 Kidney transplant rejection; N13.30 Unspecified hydronephrosis; I48.2 Chronic atrial fibrillation; E87.79 Other fluid overload; E78.5 Hyperlipidemia, unspecified; D63.1 Anemia in chronic kidney disease; E87.5 Hyperkalemia; E11.22 Type 2 diabetes mellitus with diabetic chronic kidney disease; E66.01 Morbid (severe) obesity due to excess calories; I12.9 Hypertensive chronic kidney disease with stage 1 through stage 4 chronic kidney disease, or unspecified chronic kidney disease; N18.9 Chronic kidney disease, unspecified; I27.20 Pulmonary hypertension, unspecified; G47.33 Obstructive sleep apnea (adult) (pediatric); R09.02 Hypoxemia; M10.9 Gout, unspecified; Z79.52 Long term (current) use of systemic steroids; Z79.01 Long term (current) use of anticoagulants; Z79.899 Other long term (current) drug therapy
CPT/HCPCS: 36415; 71045; 76770; 80048; 80053; 80069; 80076; 80197; 81003; 81015; 82010; 82274; 82570; 82607; 82728; 82746; 82805; 82962; 83540; 83605; 83735; 83880; 83970; 84145; 84156; 84165; 84443; 84466; 84484; 85014; 85018; 85025; 85044; 85610; 85652; 86317; 86704; 86706; 86850; 86900; 86901; 87040; 87086; 87088; 87340; 87522; 90670; 93005; 93306; 94640; 94760; 96365; 96366; 96375; 97163; 99285; G0009; J0692; J0744; J2543; J2916; J3370; J7512; P9016